=== PATIENT | male | born 1975 | race African-American/Black ===

== ENCOUNTER 2024-06-12 13:56 | Outpatient (AMB) | payer MEDICAID, SELFPAY ==
--- NOTE | 2024-06-12 13:58 | A.OFFVIS_ITS ---
Intake Visit Reasons: ED Intake Note: New patient is present for Erectile Dysfunction Urology Med: Sildenafil Antibiotic Allergy:None Blood Thinner: None Monogram Maker Required: No Accompanied by: Self / Same As Patient Allergies No Known Allergies Allergy (Verified 06/12/24 14:45) Medication List - Last Reconciled 06/12/24 by ARISTEO Galeana cetirizine 10 mg PO DAILY fluticasone propionate 50 mcg/actuation 2 sprays intranasal DAILY insulin glargine (Lantus Solostar U-100 Insulin) 35 units subcut BEDTIME melatonin 5 mg PO BEDTIME semaglutide (weight loss) (Wegovy) 0.25 mg subcut QWEEK HPI Comments Details: Rolando is a very pleasant 49-year-old male patient of Dr. Quintana. He has a past medical history of type 2 diabetes, insomnia, allergic rhinitis, mixed hyperlipidemia, depression, and transaminitis. He presents to the office today as a new patient for erectile dysfunction. In discussion with the patient today he reports symptoms have been present for many years however feels they have recently worsen. He discusses his recent admission to [facility] just 1 month ago at which time he was diagnosed with type 2 diabetes in his sugar was greater than 700. He discusses since his admission he has lost 30 lb and continues to work on diet. He reports having trialed on demand Cialis in the past and felt this was somewhat helpful. He reports having followed up with his PCP and he was given a prescription for p.r.n. Viagra however has not trialed this yet. He does report to be able to obtain an erection however feels maintaining erection adequate for penetration is extremely difficult. He otherwise denies any bothersome urinary issues. He denies urinary urgency, urinary frequency, incontinence, nocturia, hematuria, dysuria, foul smelling urine, changes to urinary stream, flank pain, fever, and or chills. He is happy with his current voiding parameters. In office urinalysis results reviewed with the patient today. We discussed at length lifestyle modifications to assist with ED as well as the importance of managing diabetes for improvement ED as well as overall health and well-being. He otherwise denies any other issues or concerns at this time. [facility] Medical History Diabetes mellitus Amputation finger Acute insomnia Allergic rhinitis Mixed hyperlipidemia Transaminitis Depression Family History (Updated 06/12/24 @ 14:03 by DENG Lema) Mother Colon cancer Father CVD (cardiovascular disease) Review of Systems Const All systems reviewed & are unremarkable except as noted in HPI and below Physical Exam Const General: cooperative, healthy appearing, comfortable, no acute distress, well d eveloped, alert and awake Nutritional Appearance: overweight Orientation/consciousness: patient oriented x3 Limitations: no limitations HEENT Head: Yes normal to inspection, Yes normocephalic and Yes atraumatic Ears: hearing grossly normal bilaterally Eyes General: appearance normal, both eyes and all related structures Neck Neck: Yes normal visual inspection and Yes trachea midline Chest Chest palpation & inspection: normal inspection of the chest Resp Effort & Inspection: normal respiratory effort and able to speak in complete sentences Cardio Rate: regular rate GI Inspection: Yes normal to inspection General: Yes no CVA tenderness Back/Spine/Pelvis Back: no CVA tenderness Skin General skin exam: no rashes or lesions noted Neuro General: patient oriented x3 Extrem General: Yes normal to inspection Psych Appearance: grossly normal and well kempt Mental Status: mental status grossly normal Speech and movement: Normal speech and movement present and Clear speech present Affect: normal affect Attitude: cooperative Thought process: Normal thought process present Thought content: Normal thought content present Insight: Fair insight present (Psych) Judgement: Fair judgement present (Psych) Results AMB Urinalysis, Automated UA Leukoctes 0 Kadie/uL Last Edit by DENG Lema on 06/12/24 14:21 UA Nitrite Negative Last Edit by DENG Lema on 06/12/24 14:21 UA Urobilinogen 1 mg/dL Last Edit by DENG Lmea on 06/12/24 14:21 UA Protein 15 mg/dL Last Edit by DENG Lema on 06/12/24 14:21 UA pH 6.0 Last Edit by DENG Lema on 06/12/24 14:21 UA Blood 0 Star/uL Last Edit by DENG Lema on 06/12/24 14:21 UA Specific [place] 1.020 Last Edit by DENG Lema on 06/12/24 14: 21 UA Ketone Negative Last Edit by DENG Lema on 06/12/24 14:21 UA Bilirubin 0 mg/dL Last Edit by DENG Lema on 06/12/24 14:21 UA Glucose 0 mg/dL Last Edit by JOHN LemaA on 06/12/24 14:21 Results Reviewed Results Reviewed: Laboratory Last Values Urine pH (Auto) 6.0 06/12/24 14:20 Specific [place] (Auto) 1.020 06/12/24 14:20 Urine Protein (Auto) 15 mg/dL 06/12/24 14:20 Glucose (UA)(Auto) 0 mg/dL 06/12/24 14:20 Urine Ketones (Auto) Negative 06/12/24 14:20 Urine Blood (Auto) 0 Star/uL 06/12/24 14:20 Urine Nitrite (Auto) Negative 06/12/24 14:20 Urine Bilirubin (Auto) 0 mg/dL 06/12/24 14:20 Urine Urobilinogen (Auto) 1 mg/dL 06/12/24 14:20 Leukocyte Esterase (Auto) 0 Kadie/uL 06/12/24 14:20 Assessment & Plan Assessment & Plan (1) Erectile dysfunction associated with type 2 diabetes mellitus: Code(s): E11.69 - Type 2 diabetes mellitus with other specified complication; N52.1 - Erectile dysfunction due to diseases classified elsewhere Category: Medical Plan In office urinalysis results reviewed with the patient today; as noted above. Will obtain PSA, A1c,testosterone, PSA, and LH for further assessment evaluation. We discussed at length potential causes of erectile dysfunction as well as further treatment options and risks and benefits of these treatment options. We discussed importance of lifestyle modifications to assist with ED We also discussed importance of managing diabetes for improvement in ED as well as overall health and well-being He currently denies any bothersome urinary issues or concerns. He reports be happy with current voiding parameters. Will continue with surveillance monitoring at this time. Follow-up in 3 months with labs to be completed prior; or sooner with any issues, concerns, and or questions. Orders: Orders AMB Urinalysis Automated Today Z13.9 - Encounter for screening, unspecified Hemoglobin A1c Today E11.9 - Type 2 diabetes mellitus without complications Prostate Specific Antigen Today E11.69 - Type 2 diabetes mellitus with other specified complication, N52.1 - Erectile dysfunction due to diseases classified elsewhere Testosterone, Free/Total Today E11.69 - Type 2 diabetes mellitus with other specified complication, N52.1 - Erectile dysfunction due to diseases classified elsewhere Lutenizing Hormone Today E11.69 - Type 2 diabetes mellitus with other specified complication, N52.1 - Erectile dysfunction due to diseases classified elsewhere Patient Instructions: The patient had an opportunity to ask questions regarding the treatment plan. All questions were answered. Physical exam, labs, and imaging were discussed and reviewed in detail. As well as risks, benefits, and discussion of treatment choices. No major barriers to understanding were identified. The patient expressed understanding and agreement with the above treatment plan. The patient was made aware they should contact our office by phone for worsening of their current condition, the appearance of new symptoms, or with any questions or concerns. Compliance is encouraged with any medications and follow up testing that is ordered. It is a privilege to be allowed the opportunity to participate in? your urological care.? Again, if you have any questions or concerns If you have any questions or concerns please do not hesitate to contact me. The office is [phone]. This note is constructed using voice recognition software. 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 Yours sincerely, ARISTEO Galeana Coding Level of Care Code New Pt Level 3 (09982) Diagnoses Erectile dysfunction associated with type 2 diabetes mellitus E11.69; N52.1
--- OUTSIDE RECORDS SUMMARY | 2024-06-12 16:12 | XMS_ITS | Clinical Summary ---
Author Organization [facility] Address [address] [place] [address] Care Team Providers Care Telephone Interviewer Name Role Phone Becky Quintana MD Primary Care Provider [phone] Source Comments PLEASE NOTE, if this patient is a minor, it may be UNLAWFUL to discuss sensitive information that is contained in these records (such as FAMILY PLANNING, MENTAL HEALTH or SUBSTANCE ABUSE) with the minor patient's parent or other person without the patient's specific authorization.[facility] Allergies No known active allergies Medications melatonin 5 mg tabIndications: Insomnia, unspecified type TAKE 1 TABLET BY MOUTH EVERYDAY AT BEDTIME 90 Tablet 1 4 Active fluticasone (FLONASE) 50 mcg/actuation nasal sprayIndication s:Sinus pressure PLACE 2 SPRAYS IN BOTH NOSTRILS ONCE DAILY 48 mL 1 4 Active cetirizine (ZYRTEC) 10 mg tabletIndicatio ns:Allergic rhinitis, unspecified seasonality, unspecified trigger TAKE 1 TABLET BY MOUTH EVERY DAY 90 Tablet 1 4 Active sildenafiL (VIAGRA) 50 mg tabletIndicatio ns:Other male erectile dysfunction Take 1 Tablet by mouth once daily as needed for erectile dysfunction 5 Tablet 5 4 Active insulin glargine 100 unit/mL (3 mL) penIndications: Type 2 diabetes mellitus with hyperglycemia, without long-term current use of insulin ([facility]) Inject 40 Units into the skin nightly at bedtime 8 mL 3 5 Active empagliflozin-m etformin (SYNJARDY XR) 12.5-1,000 mg TBphIndications :Type 2 diabetes mellitus with hyperglycemia, without long-term current use of insulin ([facility]) Take 1 Tablet by mouth daily. 90 Tablet 1 5 Active glucose 4 gram chewable tabletIndicatio ns:Type 2 diabetes mellitus with hyperglycemia, without long-term current use of insulin ([facility]) Place 4 Tablets into mouth, chew and swallow as needed for low blood sugar 90 Tablet 1 5 Active lancets 28 gaugeIndication s:Type 2 diabetes mellitus with hyperglycemia, without long-term current use of insulin ([facility]) Check blood sugar once daily. 100 Each 3 5 Active alcohol swabsIndication s:Type 2 diabetes mellitus with hyperglycemia, without long-term current use of insulin ([facility]) Check blood sugar once daily. 100 Each 5 Active blood sugar diagnostic (FREESTYLE LITE STRIPS) stripsIndicatio ns:Type 2 diabetes mellitus with hyperglycemia, without long-term current use of insulin ([facility]) Check blood sugar once daily. 100 Each 3 5 Active semaglutide, weight loss, (WEGOVY) 0.25 mg/0.5 mL pnijIndications :BMI 38.0-38.9,adult ,Encounter for weight management Inject 0.25 mg into the skin once a week 2 mL 3 4 025 Discontin ued(Thera py completed /Not needed) Active Problems Problem Noted Date Diagnosed Date Alcohol use disorder, mild 04/12/2024 Overview (04/12/2024): Pt has been drinking 2 fingers of bourbon 2-3 drinks a night in order to go to sleep. Switched from danilo to bourbon. Denies drinking during the day. Denies withdrawal symptoms. Denies cravings for alcohol. Reports melatonin gave him nightmares. Declined Naltrexone. Encounter for weight management 04/12/2024 Overview (04/12/2024): 04/12/24: weight 264lbs Wegovy 0.25mg Other male erectile dysfunction 04/03/2023 Overview (04/03/2023): Seen by Urology 03/24/23, started on Tadalafil 20mg PRN Financial difficulties 11/08/2022 Lack of housing 11/08/2022 Lack of access to transportation 11/08/2022 Mixed hyperlipidemia 11/08/2022 Allergic rhinitis 11/08/2022 Transaminitis 11/08/2022 Family history of colon cancer in mother 023 Depression 08/02/2022 Overview (03/14/2023): [facility] Service Therapist - weekly visits, every Tu No improvement with Lexapro and Wellbutrin combo. Tapered off Insomnia 08/02/2022 Tobacco use 07/04/2022 Encounters Date Type Department Care Team Description 05/29/2024 1:20 PM EST Office Visit [address] [phone] Becky Quintana MD Type 2 diabetes mellitus with hyperglycemia, without long-term current use of insulin ([facility]) (Primary Dx) 05/29/2024 Travel 05/29/2024 Interim Notes [address] [phone] Ilsa Arteaga [place] 04/12/2024 11:00 AM EST Office Visit [address] [phone] Becky Quintana MD Routine general medical examination at a health care facility (Primary Dx); Screening for colon cancer; Mixed hyperlipidemia; Family history of colon cancer in mother; Other male erectile dysfunction; BMI 38.0-38.9,adult; Encounter for weight management; Vertigo; Lump on face; Alcohol use disorder, mild; Insomnia, unspecified type; Financial difficulties; Lack of housing; Lack of access to transportation; Immunization declined; Screening for STDs (sexually transmitted diseases) 04/12/2024 Interim Notes [address] [phone] Silva Edwards [place] 04/12/2024 Travel from Last 3 Months Immunizations Name Administration Dates Next Due TDAP 07/04/2022 Family History Medical History Relation Name Comments Cardiovascular disease Father Colon Cancer Mother Relation Name Status Comments Father Mother Social History Tobacco Use Types Packs/Day Years Used Date Smoking Tobacco: Every Day Cigarettes Smokeless Tobacco: Never Tobacco Cessation:Ready to Q uit: Not Asked; Counseling Given: Not Answered Alcohol Use Standard Drinks/Week Comments Yes 0 (1 standard drink = 0.6 oz pur e alcohol) occational Social Connections Answer Date Recorded Connectedness 99 05/02/2023 Financial Resource Strain Answer Date R ecorded Financial Resource Strain 2 2022 Stress Answer Date Recorded Stress 2 11/08/2022 Physical Activity Answer Date Recorded Physical Activity 0 07/04/2022 Food Insecurity Answer Date Recorded Food 1 11/08/2022 Transportation Needs Answer Date Record ed Transportation 2 11/08/2022 Housing Stability Answer Date Recorded Housing 2 11/08/2022 Safety and Environment Answer Date Barber rded Safety 0 05/02/2023 Utilities Answer Date Recorded Utilities 1 11/08/2022 Employment Answer Date Recorded Stress 0 07/04/2022 Sex and Gender Information Value Date Recorded Sex Assigned at Male 07/04/2022 11:21 AM PST Legal Sex Male 10:22 AM PST Gender Identity Male 07/04/2022 11:21 AM PST Sexual Orientation Straight 07/04/2022 11 :21 AM PST COVID-19 Exposure Response Date Recorded In the last 10 days, have yo u been in contact with someone who was confirmed or suspected to have Coronavirus/COVID-19? No / Unsure 05/29/2024 1:17 PM EST Last Filed Vital Signs Vital Sign Reading Time Taken Comments Blood Pressure 130/84 05/29/2024 1:26 PM EST Pulse 84 05/29/2024 1:26 PM EST Temperature 36.3 ??C (97.3 ??F) 05/29/2024 1:26 PM ES T Respiratory Rate 16 05/29/2024 1:26 PM EST Oxygen Saturation 98% 05/29/2024 1:26 PM EST Inhaled Oxygen Concentration - - Weight 110.1 kg (242 lb 12.8 oz) 05/29/2024 1:26 PM EST Height 175.4 cm (5' 9.06 ) 04/12/2024 1 1:08 AM EST Body Mass Index 35.8 04/12/2024 11:08 AM EST Plan of Treatment Upcoming Encounters Date Type Department Care Team (Late st Contact Info) Description 06/26/2024 10:40 AM EST Office Visit [address] [phone] 07/05/2024 11:20 AM EST Office Visit [address] [phone] Reymundo Thurman, PharmD [address] [place] [address] 07/15/2024 10:40 AM EST Office Visit [address] [phone] Becky Quintana MD [address] [place] [address] Health Maintenance Due Date Last Done Comments Dental Prophy 1976 Diabetes Foot Exam 1976 Diabetes Microalbumin (w/Creatinine) 1976 Retinopathy Screening 01/28/1989 Imm-Hepatitis A (1 of 2 - Ri sk 2-dose series) 01/28/1995 Imm-Hepatitis B (1 of 3 - 19 + 3-dose series) 01/28/1995 Imm-Pneumococcal (1 of 2 - PCV) 01/28/1995 CT Colonography 01/28/2021 Colonoscopy 01/28/2021 Colorectal Cancer Screening 01/28/2021 FIT/gFOBT 01/28/2021 Fecal DNA 01/28/2021 Flexible Sigmoidoscopy 01/28/2021 [id number] ( - season) 2024 Imm-Influenza (#1) 2024 Alcohol and Drug Screen 05/22/2024 04/12/2024, 07/04 Depression Monitoring 07/13/2024 04/12/2024 , 03/14/2023, 11/02/2022, Additional history exists Diabetes HbA1c 08/18/2024 05/20/2024, 04/23, 04/12/2024, Additional history exists Dental BW 01/27/2025 01/26/2024 Dental Examination 01/27/2025 01/26/2024 Dental Perio Charting 01/27/2025 01/26/2024 Annual Preventive Care Visit 04/12/2025 04/12/2024, 07/04/2022 LTBI Screening (#1) 04/12/2025 04/12/2024 Lipid Screening 04/12/2025 04/12/2024, 07/04/2022 Tobacco Cessation Counseling (#1) 04/12/2025 024 Serum Creatinine 05/22/2025 05/22/2024, , 05/20/2024, Additional history exists Hypertension Screening (#1) 05/29/2025 Dental FMX/Pano 01/27/2029 01/26/2024 Imm-DTaP/Tdap/Td (2 - Td or Tdap) 07/04/2032 023 HIV Screening Completed 07/04/2022 Hepatitis C Screening Completed 07/04/2022 Procedures Procedure Name Priority Date/Time Associated Diagnosis Comments OTHER ORDERS SCANNED DOCUMENT 05/29/2024 3:00 AM EST QUANTIFERON-TB GOLD PLUS Routine 04/12/2024 12:35 PM EST Routine general medical examination at a health care facility TSH W/RFLX FREE T4 Routine 04/12/2024 12 :33 PM EST Routine general medical examination at a health care facility CBC (H/H, RBC, INDICES, WBC, PLT) (REFL) Routine 04/12/2024 12:33 PM EST Routine general medical examination at a health care facility LIPID PANEL Routine 04/12/2024 12:33 PM EST Routine general medical examination at a health care facility HEMOGLOBIN GLYCOSYLATED A1C Routine 04/12/2024 12:33 PM EST Routine general medical examination at a health care facility COMPREHENSIVE METABOLIC PANEL Routine 04/12/2024 12:33 PM EST Routine general medical examination at a health care facility Full INTRAORAL - COMP SERIES OF RADIOGRAPHIC IMAGES Routine 01/26/2024 10:00 AM EDT Caries of enamel (incipient) Caries Full COMP ORAL EVALUATION - NEW/ESTABLISHED PATIENT Routine 01/26/2024 10:00 AM EDT Caries of enamel (incipient) Caries HIV 1/2 AG & AB W/RFLX (4TH GEN) Routine 07/04/2022 2:35 PM EST Exposure to potential infection HEPATITIS C AB W/RFLX HCV RNA, QT, RT PCR Routine 07/04/2022 2:35 PM EST Exposure to potential infection from Last 3 Months or Most Recently Relevant to Health Maintenance Results * OTHER ORDERS SCANNED DOCUMENT (05/29/2024 3:00 AM EST) 05/29/2024 3:00 AM EST Corneliusricadragust[facility] Naranjori T[employer] DELIVERY AIDE-C SCAN OTHER ORDERS Final R esult * QUANTIFERON-TB GOLD PLUS (04/12/2024 12:35 PM EST) QUANTIFERON NEGATIVE NEGATIVE [facility] Comment: Negative test result. M. tuberculosis complex infection unlikely. NIL 0.16 IU/mL [facility] MITOGEN-NIL 6.93 IU/mL [facility] TB1-NIL <0.00 IU/mL [facility] TB2-NIL 0.01 IU/mL [facility] Comment: The Nil tube value reflects the background interferon gamma immune response of the patient's blood sample. This value has been subtracted from the patient's displayed TB and Mitogen results. Lower than expected results with the Mitogen tube prevent false-negative Quantiferon readings by detecting a patient with a potential immune suppressive condition and/or suboptimal pre-analytical specimen handling. The TB1 Antigen tube is coated with the M. tuberculosis-specific antigens designed to elicit responses from TB antigen primed CD4+ helper T-lymphocytes. The TB2 Antigen tube is coated with the M. tuberculosis-specific antigens designed to elicit responses from TB antigen primed CD4+ helper and CD8+ cytotoxic T-lymphocytes. For additional information, please refer to https://education.St. Vibes.ReCoTech/faq/KES344 (This link is being provided for informational/ educational purposes only.) Blood Blood / Unknown 04/12/2024 1 2:35 PM EST 04/12/2024 12:35 PM EST Narrative [facility] - 04/16/2024 2:09 PM EST FASTING:YES us Becky Quintana MD LAB - BLOOD DRAW Final Result Performing Organization Address City/[facility]/ZIP Co de Phone Number [facility] [address] [address], [employer] [address] [address] * CBC (H/H, RBC, INDICES, WBC, PLT) (REFL) (04/12/2024 12:33 PM EST) [facility] WHITE BLOOD CELL COUNT 9.3 3.8 - 10.8 Thousand/ uL [facility] RED BLOOD CELL COUNT 5.04 4.20 - 5.80 Million/u L [facility] HEMOGLOBIN 16.5 13.2 - 17.1 g/dL [facility] HEMATOCRIT 47.2 38.5 - 50.0 % [facility] MCV 93.7 80.0 - 100.0 fL [facility] MCH 32.7 27.0 - 33.0 pg [facility] MCHC 35.0 32.0 - 36.0 g/dL [facility] Comment: For adults, a slight decrease in the calculated MCHC value (in the range of 30 to 32 g/dL) is most likely not clinically significant; however, it should be interpreted with caution in correlation with other red cell parameters and the patient's clinical condition. RDW 13.6 11.0 - 15.0 % [facility] PLATELET COUNT 149 140 - 400 Thousand/ uL [facility] MPV 12.1 7.5 - 12.5 fL [facility] Blood Blood / Unknown 04/12/2024 1 2:33 PM EST 04/12/2024 12:34 PM EST Narrative [facility] - 04/13/2024 4:24 AM EST FASTING:YES us Becky Quintana MD LAB - BLOOD DRAW Final Result Performing Organization Address [facility]/ZIP Co de Phone Number [email or web address] [facility] [address] [address], [employer] [facility] [address] [place] [address] * TSH W/RFLX FREE T4 (04/12/2024 12:33 PM EST) TSH W/REFLEX TO FT4 2.56 0.40 - 4.50 mIU/L [facility] Blood Blood / Unknown 04/12/2024 1 2:33 PM EST 04/12/2024 12:34 PM EST Narrative [email or web address] - 04/13/2024 4:24 AM EST FASTING:YES us Becky Quintana MD LAB - BLOOD DRAW Edited Result - Final Performing Organization Address [facility]/ZIP Co de Phone Number [facility] [address] [place] [phone], [employer] [address] [address] * (ABNORMAL) HEMOGLOBIN GLYCOSYLATED A1C (04/12/2024 12:33 PM EST) HEMOGLOBIN A1C 6.9(H) <5.7 % of total Hgb [facility] Comment: For someone without known diabetes, a hemoglobin A1c value of 6.5% or greater indicates that they may have diabetes and this should be confirmed with a follow-up test. For someone with known diabetes, a value <7% indicates that their diabetes is well controlled and a value greater than or equal to 7% indicates suboptimal control. A1c targets should be individualized based on duration of diabetes, age, comorbid conditions, and other considerations. Currently, no consensus exists regarding use of hemoglobin A1c for diagnosis of diabetes for children. ?? Blood Blood / Unknown 04/12/2024 1 2:33 PM EST 04/12/2024 12:34 PM EST Narrative [email or web address] - 04/13/2024 4:24 AM EST FASTING:YES us Becky Quintana MD LAB - BLOOD DRAW Edited Result - Final Performing Organization Address City/[facility]/ZIP Co de Phone Number [facility] [address] [address], [employer] [address] [address] * (ABNORMAL) LIPID PANEL (04/12/2024 12:33 PM EST) CHOLESTEROL, TOTAL 131 <200 mg/dL [facility] HDL CHOLESTEROL 26(L) > OR = 40 mg/dL [facility] TRIGLYCERIDES 170(H) <150 mg/dL [facility] LDL-CHOLESTEROL 78 99 mg/dL (calc) [facility] Comment: Reference range: <100 Desirable range <100 mg/dL for primary prevention; ?? <70 mg/dL for patients with CHD or diabetic patients with > or = 2 CHD risk factors. LDL-C is now calculated using the Mayda calculation, which is a validated novel method providing better accuracy than the Friedewald equation in the estimation of LDL-C. Eddie SS et al. ROSEANNE. 2013;310(19): 6360-9482 (http://education.InSphero/faq/BYX339) CHOL/HDLC RATIO 5.0(H) <5.0 (calc) [facility] NON-HDL CHOLESTEROL 105 <130 mg/dL (calc) [facility] Comment: For patients with diabetes plus 1 major ASCVD risk factor, treating to a non-HDL-C goal of <100 mg/dL (LDL-C of <70 mg/dL) is considered a therapeutic option. Blood Blood / Unknown 04/12/2024 1 2:33 PM EST 04/12/2024 12:34 PM EST Narrative [facility] - 04/13/2024 4:24 AM EST FASTING:YES Becky Quintana MD LAB - BLOOD DRAW Final Result [facility] [address] [place] [address], [facility] [address] [place] [phone] * (ABNORMAL) COMPREHENSIVE METABOLIC PANEL (04/12/2024 12:33 PM EST) GLUCOSE 140(H) 65 - 99 mg/dL [facility] Comment: ?Fasting reference interval For someone without known diabetes, a glucose value >125 mg/dL indicates that they may have diabetes and this should be confirmed with a follow-up test. UREA NITROGEN (BUN) 9 7 - 25 mg/dL [email or web address] CREATININE (blood) 0.81 0.60 - 1.29 mg/dL [email or web address] EGFR 109 > OR = 60 mL/min/1. 73m2 [email or web address] [facility] BUN/CREATININE RATIO SEE NOTE: [email or web address] [facility] Comment: ?? Not Reported: BUN and Creatinine are within ?? reference range. ? SODIUM 139 135 - 146 mmol/L [email or web address] POTASSIUM 3.8 3.5 - 5.3 mmol/L [email or web address] CHLORIDE 106 98 - 110 mmol/L [email or web address] CARBON DIOXIDE 25 20 - 32 mmol/L [email or web address] CALCIUM 9.1 8.6 - 10.3 mg/dL [email or web address] PROTEIN, TOTAL 8.4(H) 6.1 - 8.1 g/dL [email or web address] ALBUMIN 4.5 3.6 - 5.1 g/dL [email or web address] GLOBULIN 3.9(H) 1.9 - 3.7 g/dL (calc) [email or web address] ALBUMIN/GLOBULI N RATIO 1.2 1.0 - 2.5 (calc) [email or web address] BILIRUBIN, TOTAL 0.7 0.2 - 1.2 mg/dL [email or web address] ALKALINE PHOSPHATASE 76 36 - 130 U/L [email or web address] [facility] AST 51(H) 10 - 40 U/L [email or web address] ALT 52(H) 9 - 46 U/L [email or web address] Blood Blood / Unknown 04/12/2024 1 2:33 PM EST 04/12/2024 12:34 PM EST Narrative [email or web address] - 04/13/2024 4:24 AM EST FASTING:YES us Becky Quintana MD LAB - BLOOD DRAW Edited Result - Final [email or web address] [facility] [address] [address], [email or web address] [facility] [address] [place] [address] * HEPATITIS C AB W/RFLX HCV RNA, QT, RT PCR (07/04/2022 2:35 PM EST) HEPATITIS C ANTIBODY NON-REACT SEGUN NON-REACT SEGUN [facility] SIGNAL TO CUT-OFF 0.09 <1.00 [facility] Comment: HCV antibody was non-reactive. There is no laboratory evidence of HCV infection. In most cases, no further action is required. However, if recent HCV exposure is suspected, a test for HCV RNA (test code 23475) is suggested. For additional information please refer to http://Nidmi.ReGen Power Systems/faq/YPK93t9 (This link is being provided for informational/ educational purposes only.) Blood Blood / Unknown 07/04/2022 2 :35 PM EST 07/04/2022 2:35 PM EST Narrative [facility] [employer] - 07/05/2022 7:19 AM EST FASTING:NO Becky Quintana MD LAB - BLOOD DRAW Edited Result - Final [facility] [address] [facility] [address] [place] [address], [facility] [address] ([address]) [place] [address] * HIV 1/2 AG & AB W/RFLX (4TH GEN) (07/04/2022 2:35 PM EST) [facility] HIV AG/AB, 4TH GEN NON-REAC TIVE NON-REAC TIVE [facility] Comment: HIV-1 antigen and HIV-1/HIV-2 antibodies were not detected. There is no laboratory evidence of HIV infection. PLEASE NOTE: This information has been disclosed to you from records whose confidentiality may be protected by state law. ??If your state requires such protection, then the state law prohibits you from making any further disclosure of the information without the specific written consent of the person to whom it pertains, or as otherwise permitted by law. A general authorization for the release of medical or other information is NOT sufficient for this purpose. ?? For additional information please refer to http://Nidmi.ReGen [employer] Systems/faq/PXL229 (This link is being provided for informational/ educational purposes only.) The performance of this assay has not been clinically validated in patients less than 2 years old. Blood Blood / Unknown 07/04/2022 2 :35 PM EST 07/04/2022 2:35 PM EST Narrative [facility] - 07/05/2022 7:19 AM EST FASTING:NO Becky Quintana MD LAB - BLOOD DRAW Final Result [facility] [address] [facility] [address] [place] [address], [facility] [address] [facility] ([address]) [place] [address] from Last 3 Months or Most Recently Relevant to Health Maintenance Insurance [facility] [employer] MEDICAID DENTAL Care Teams Telephone Interviewer Relationship Specialty Start Date End Date Becky Quintana MD [address] [place] [address] PCP - General Family Medicine, Physician 06/10/22
--- OUTSIDE RECORDS SUMMARY | 2024-06-12 16:12 | XMS_ITS | Encounter Summary ---
Author Organization [facility] Address [address] [place] [address] Care Team Providers Care Autopsy Pathologist Name Role Phone Becky Quintana MD Primary Care Provider [phone] Reason for Visit * Reason Comments Correspondence Encounter Details Date Type Department Care Team (Late st Contact Info) Description 05/29/2024 Interim Notes [address] [phone] Ilsa Arteaga [place] [address] [place] [address] Social History Tobacco Use Types Packs/Day Years Used Date Smoking Tobacco: Every Day Cigarettes Smokeless Tobacco: Never Alcohol Use Standard Drinks/Week Comments Yes 0 [...] Orientation Straight 07/04/2022 11 :21 AM PST documented as of this encounter Progress Notes * Ilsa Arteaga MA - 05/29/2024 9:10 AM EST Faxed plan of care to [facility] at [phone]. Fax was a success. Form sent to medical records on 05/29/24 to be scanned into pt EMR. documented in this encounter Plan of Treatment Upcoming Encounters Date Type Department Care Team (Late st Contact Info) Description 06/26/2024 10:40 AM EST Office Visit [address] [phone] 07/05/2024 11:20 AM EST Office Visit [address] [phone] Reymundo Thurman PharmD [address] [place] [address] 07/15/2024 10:40 AM EST Office Visit [address] [phone] Becky Quintana MD [address] [place] [phone] documented as of this encounter Visit Diagnoses Not on filedocumented in this encounter Additional Health Concerns Assessment Noted Time PHQ-9 Depression Total Score: 22 04/12/ 024 1:25 PM PST documented as of this encounter Care Teams Autopsy Pathologist Relationship Specialty Start Date End Date Becky Quintana MD [address] [place] [address] PCP - General Family Medicine, Physician 06/10/22 documented as of this encounter
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
--- OUTSIDE RECORDS SUMMARY | 2024-06-12 16:12 | XMS_ITS | Encounter Summary ---
Author Organization [facility] Address [address] [place] [address] Care Team Providers Care Patient Ombudsperson Name Role Phone Becky Quintana MD Primary Care Provider [phone] Encounter Details Date Type Department Care Team (Latest Contact Info) Description 05/29/2024 Travel Social History Tobacco Use Types Packs/Day Years [...] PM EST documented as of this encounter Plan of Treatment Upcoming Encounters Date Type Department Care Team (Late st Contact Info) Description 06/26/2024 10:40 AM EST Office Visit [address] [phone] 07/05/2024 11:20 AM EST Office Visit [address] [phone] Reymundo Thurman, PharmD [address] [place] [phone] 07/15/2024 10:40 AM EST Office Visit [address] [phone] Becky Quintana MD [address] [place] [phone] documented as of this encounter Visit Diagnoses Not on filedocumented in this encounter Additional Health Concerns Assessment Noted Time PHQ-9 Depression Total Score: 22 024 1:25 PM PST documented as of this encounter Care Teams Patient Ombudsperson Relationship Specialty Start Date End Date Becky Quintana MD [address] [place] [phone] PCP - General Family Medicine, Physician 06/10/22 documented as of this encounter
--- OUTSIDE RECORDS SUMMARY | 2024-06-12 16:13 | XMS_ITS | Encounter Summary ---
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 pertinent surgical history. No family history on file. has No Known Allergies. No current facility-administered medications on file prior to encounter. Current Outpatient Medications on File Prior to Encounter Medication Sig Dispense Refill fluticasone propionate (FLONASE) 50 mcg/actuation nasal spray Administer 1 spray into each nostril 1 (one) time each day. Shake gently. Before first use, prime pump. After use, clean tip and replace cap. melatonin 5 mg tablet Take 1 tablet (5 mg total) by mouth at bedtime. semaglutide (OZEMPIC) 0.25 mg or 0.5 mg(2 mg/1.5 mL) injection pen Inject 0.25 mg under the skin every 7 (seven) days. sildenafiL (VIAGRA) 50 mg tablet Take 1 tablet (50 mg total) by mouth 1 (one) time each day if needed for erectile dysfunction. Physical Exam ED Triage Vitals [05/20/24 1512] Temp Heart Rate Resp BP 36.4 ??C (97.5 ??F) 88 18 124/84 SpO2 Temp Source Heart Rate Source Patient Position 96 % Oral -- Sitting BP Location FiO2 (%) Right arm -- GENERAL: Non-toxic appearing, no acute distress. SKIN: [place], warm, dry. HEENT: Normocephalic, atraumatic. EOMI. NECK: Supple, full ROM. CARDIOVASCULAR: Heart regular rate and rhythm. No discernible MRG. PULMONARY: Breathing adequately on room air. CTAB. ABDOMINAL: Soft, nondistended, nontender throughout. MUSCULOSKELETAL: Nonpainful and purposeful movements of all extremities bilaterally, equal strengthbilaterally NEURO: AOx3. Equal strength and sensation bilaterally. PSYCHIATRIC: Normal affect, fluid speech, good eye contact and appropriate demeanor. Results Labs Reviewed COMPREHENSIVE METABOLIC PANEL - Abnormal Result Value Sodium 129 (*) Potassium 4.4 Chloride 94 (*) CO2 22 Anion Gap 13 (*) Glucose 704 (*) BUN 24 Creatinine 1.93 (*) eGFR 42 (*) BUN/Creatinine Ratio 12.4 Calcium 10.4 AST (SGOT) 22 ALT (SGPT) 46 Alkaline Phosphatase 128 (*) Total Protein 9.2 (*) Albumin 4.3 Total Bilirubin 1.4 MAGNESIUM - Abnormal Magnesium 3.0 (*) OSMOLALITY - Abnormal Osmolality Darron 331 (*) BETA HYDROXYBUTYRATE - Abnormal Beta-Hydroxybutyrate 44.2 (*) VENOUS BLOOD GAS - Abnormal pH, Carlos 7.32 pCO2, Carlos 44 pO2, Carlos 39 HCO3, Venous 20.9 (*) O2 Sat, Carlos 68.4 Base Excess, Carlos -3.6 (*) CBC WITH AUTO DIFFERENTIAL - Abnormal WBC 10.7 RBC 5.20 Hemoglobin 16.8 Hematocrit 45.8 MCV 88.1 MCH 32.3 (*) MCHC 36.7 RDW 12.7 Platelets 150 MPV 12.3 (*) NRBC 0.0 NRBC Absolute 0.00 Neutrophils Relative 49.4 Lymphocytes Relative 41.7 Monocytes Relative 7.9 Eosinophils Relative 0.4 Basophils Relative 0.4 Immature Granulocytes Relative 0.2 Neutrophils Absolute 5.30 Lymphocytes Absolute 4.47 Monocytes Absolute 0.85 Eosinophils Absolute 0.04 Basophils Absolute 0.04 Immature Granulocytes Absolute 0.02 POCT GLUCOSE, BLOOD - Abnormal Glucose POCT >600 (*) LIPASE - Normal Lipase 35 RESPIRATORY VIRUS PANEL MOLECULAR STUDY CBC AND DIFFERENTIAL Narrative: The following orders were created for panel order CBC and differential. Procedure Abnormality Status --------- ------ CBC auto differential[[id number]] Abnormal Final result Please view results for these tests on the individual orders. URINALYSIS WITH REFLEX MICROSCOPIC Narrative: The following orders were created for panel order Urinalysis with reflex microscopic. Procedure Abnormality Status --------- ------ Urinalysis with reflex ...[[id number]] Please view results for these tests on the individual orders. URINALYSIS WITH REFLEX MICROSCOPIC HEMOGLOBIN A1C TROPONIN I HIGH SENSITIVITY TROPONIN I HIGH SENSITIVITY POC GLUCOSE POCT GLUCOSE, BLOOD POCT GLUCOSE, BLOOD POCT GLUCOSE, BLOOD POCT GLUCOSE, BLOOD POCT GLUCOSE, BLOOD Abnormal Labs Reviewed COMPREHENSIVE METABOLIC PANEL - Abnormal; Notable for the following components: Result Value Sodium 129 (*) Chloride 94 (*) Anion Gap 13 (*) Glucose 704 (*) Creatinine 1.93 (*) eGFR 42 (*) Alkaline Phosphatase 128 (*) Total Protein 9.2 (*) All other components within normal limits MAGNESIUM - Abnormal; Notable for the following components: Magnesium 3.0 (*) All other components within normal limits OSMOLALITY - Abnormal; Notable for the following components: Osmolality Darron 331 (*) All other components within normal limits BETA HYDROXYBUTYRATE - Abnormal; Notable for the following components: Beta-Hydroxybutyrate 44.2 (*) All other components within normal limits VENOUS BLOOD GAS - Abnormal; Notable for the following components: HCO3, Venous 20.9 (*) Base Excess, Carlos -3.6 (*) All other components within normal limits CBC WITH AUTO DIFFERENTIAL - Abnormal; Notable for the following components: MCH 32.3 (*) MPV 12.3 (*) All other components within normal limits POCT GLUCOSE, BLOOD - Abnormal; Notable for the following components: Glucose POCT >600 (*) All other components within normal limits XR Chest 2 Views (Results Pending) I have discussed the incidental/abnormal imaging and/or lab abnormalities with the patient and haveinstructed them the need for further evaluation and workup with their primary care doctor. I have provided the patient with a paper copy of the abnormality. The laboratory results, imaging results and other diagnostic exam results were reviewed in the EMR. EKG Interpretation Ventricular rate 81 bpm QT/QTc 3 to 6/448 ms No acute ischemic changes, no STEMI. NSR. Critical Care Time None Differential Diagnosis New onset diabetes Hyperglycemia Ketoacidosis Dehydration Primary polydipsia Atypical ACS ? Medical Decision Making 49-year-old male with history of allergies, family history of diabetes; presents for evaluation of polydipsia, polyuria, intermittent lightheadedness and visual changes, unintentional weight loss. Markedly elevated glucose at urgent care earlier today. Unfortunately due to extended wait times, patient was in the waiting room for at least 5 hours prior to being brought back and formally evaluated. Workup was initiated which showed no leukocytosis oranemia. Creatinine 1.93 with GFR 42, no comparison on record. Glucose by BMP 704. No acidosis on VBG. Butyrate 44.2. Abdominal exam is benign, he has no GI upset to warrant investigation by CT imaging. Willing for urinalysis. EKG and cardiac enzymes to rule out atypical ACS. Respiratory panel. Bolus fluids, 10 units insulin. Admit for new onset diabetes. Clinical Impressions as of 05/20/241956 Hyperglycemia Medications lactated Ringer's bolus 1,000 mL (has no administration in time range) insulin regular (HumuLIN R) injection 10 Units (has no administration in time range) potassium chloride (KLOR-CON M20) CR tablet 40 mEq (has no administration in time range) lactated Ringer's bolus 1,000 mL (has no administration in time range) Procedures Procedures Diagnosis 1. Hyperglycemia Disposition Admit to Inpatient ED Prescriptions None Physician Attestation Electronically signed by ALLY Moreno PA 05/20/241956 ALLY Allen 05/20/241957 Associated attestation - Murtaza Pierson DO - 05/20/2024 8:08 PM EST I discussed the patient management with preceding Advanced Practice Provider. The patient presented to the emergency department with hyperglycemia and symptoms of hyperglycemia,and reportedly does not have a history of diabetes. Patient was noted to be significantly hyperglycemic, and patient's workup and acute care was started in the ED, including appropriate diagnostic studies, IV fluids and symptomatic treatment. The patient's care will be transferred to the inpatient service for further evaluation and management. Patient will continue to be closely observed while inthe ED. Murtaza Pierson DO documented in this encounter H&P Notes * ALLY Fay - 05/20/2024 9:00 PM EST [facility] HISTORY AND PHYSICAL Please contact author [ALLY Fay] via [employer]. Patient: Kim Olson Admission Date/Time: 05/20/2024 7:35 PM : 1975 [49 y.o.] Patient's PCP: Becky Quintana MD Attending Provider: Leo Flores MD CHIEF COMPLAINT DKA HISTORY OF PRESENT ILLNESS This is a pleasant 49-year-old gentleman with a past medical history of insomnia, overweight, hyperlipidemia, transaminitis and depression who presents to [facility] with a complaint of DKA. Patient states that over the past couple of weeks he has had a decreased appetite, polyuria and polydipsia with blurry vision. He was supposed to start on weight loss but that was deferred until he went on a cruise. Patient presents to [facility] and his labs show a sodium of 129, sodiumof 704 and anion gap of 13. EKG is nonischemic and troponins have been flat. He has no history of diabetes. He was given 10 units of fact acting insulin and started on an insulin drip. Currently denies any recent illnesses or chest pain. Review of Systems The rest of the 12 point review of systems is reviewed and is negative MEDICAL HISTORY Past Medical History: Hyperlipidemia Overweight Transaminitis Depression Insomnia . Past Surgical History Social History Drinks about 2 fingers of bourbon per night for sleep. Has not had any alcohol for the past 2 weeks. Smokes cigars less than 1 pack/day No drugs Allergies Patient has no known allergies. Home Medications Home Medications fluticasone propionate (FLONASE) 50 mcg/actuation nasal spray Administer 1 spray into each nostril 1 (one) time each day. Shake gently. Before first use, prime pump. After use, clean tip and replace cap. melatonin 5 mg tablet Take 1 tablet (5 mg total) by mouth at bedtime. semaglutide (OZEMPIC) 0.25 mg or 0.5 mg(2 mg/1.5 mL) injection pen Inject 0.25 mg under the skin every 7 (seven) days. sildenafiL (VIAGRA) 50 mg tablet Take 1 tablet (50 mg total) by mouth 1 (one) time each day if needed for erectile dysfunction. EKG 81 bpm Normal sinus rhythm Physical Examination Alert and oriented. Neurologically grossly intact. HEENT: Head normocephalic atraumatic: eyes anicteric, extraocular muscles intact. Mucosa: pink and moist. Trachea midline. No JVD. Chest: no deformities. Heart: RRR Lungs: Clear to auscultation bilaterally. Abdomen: Positive bowel sounds soft and nontender. Upper extremities: no clubbing or cyanosis. Lower extremities: No edema Skin: Warm and dry ASSESSMENT & PLAN DKA: Insulin drip 4 units/h. Replace potassium as indicated. Check BMP every 4 hours Check glucose every 2 hours. Dietary consult IVF Respiratory panel pending CXR pending Insomnia: Melatonin Admission checklist Code status: Full Code - Default VTE Prophylaxis: Heparin 5000 units subq q 8 hours Associated attestation - Leo Flores MD - 05/21/2024 8:32 PM EST This is a split/shared visit with ALLY Fay. I personally performed the medical decision making (MDM) for the care of this patient on 05/20/2024s documented below Previous healthy 49-year-old male presents with diabetic ketoacidosis. After discussion with ER provider, the patient will be admitted to the hospital. The patient initially was planned to be started on insulin infusion; however, after 4 L fluid resuscitation and 10 units of IV insulin, the patient's anion gap had closed. He has been transitioned to insulin glargine 20 units daily and sliding scale insulin for initial management of his diabetes. Hemoglobin A1c is currently pending. Leo Flores MD 05/21/24 8:31 PM EST documented in this encounter Plan of Treatment Upcoming Encounters Date Type Department Care Team (Late st Contact Info) Description 09/04/2024 1:30 PM EDT Appointment [facility] Endoscopy [address] [place] [id number] Nithin Villavicencio MD [address] [facility] [address] [place] [address] documented as of this encounter Procedures Procedure Name Priority Date/Time Associated Diagnosis Comments POCT GLUCOSE BLOOD Routine 05/23/2024 11 :19 AM EST POCT GLUCOSE BLOOD Routine 05/23/2024 7: 48 AM EST POCT GLUCOSE BLOOD Routine 05/22/2024 7: 38 PM EST POCT GLUCOSE BLOOD Routine 05/22/2024 3: 57 PM EST POCT GLUCOSE BLOOD Routine 05/22/2024 11 :03 AM EST BASIC METABOLIC PANEL Routine 05/22/2024 9:42 AM EST EXTRA TUBES Routine 05/22/2024 9:40 AM EST LAVENDER - EDTA Routine 05/22/2024 9:40 AM EST POCT GLUCOSE BLOOD Routine 05/22/2024 8: 22 AM EST POCT GLUCOSE BLOOD Routine 05/21/2024 10 :56 PM EST POCT GLUCOSE BLOOD Routine 05/21/2024 8: 37 PM EST POCT GLUCOSE BLOOD Routine 05/21/2024 4: 37 PM EST POCT GLUCOSE BLOOD Routine 05/21/2024 1: 22 PM EST POCT GLUCOSE BLOOD Routine 05/21/2024 11 :33 AM EST CBC WITH AUTO DIFFERENTIAL Routine 05/21/2024 9:23 AM EST CBC AND DIFFERENTIAL Routine 05/21/2024 9:23 AM EST PHOSPHORUS Routine 05/21/2024 9:23 AM EST MAGNESIUM Routine 05/21/2024 9:23 AM EST BASIC METABOLIC PANEL Timed 05/21/2024 9:23 AM EST POCT GLUCOSE BLOOD Routine 05/21/2024 7: 39 AM EST POCT GLUCOSE BLOOD Routine 05/21/2024 5: 19 AM EST BASIC METABOLIC PANEL Timed 05/21/2024 4:43 AM EST POCT GLUCOSE BLOOD Routine 05/21/2024 2: 26 AM EST POCT GLUCOSE BLOOD Routine 05/21/2024 12 :16 AM EST BASIC METABOLIC PANEL Timed 05/20/2024 11:46 PM EST POCT GLUCOSE BLOOD Routine 05/20/2024 10 :51 PM EST POCT GLUCOSE BLOOD Routine 05/20/2024 9: 28 PM EST TROPONIN I HIGH SENSITIVITY STAT 05/20/2024 9:25 PM EST XR CHEST 1 VIEW STAT 05/20/2024 9:23 PM EST RESPIRATORY VIRUS PANEL MOLECULAR STUDY STAT 05/20/2024 8:50 PM EST US BEDSIDE VASCULAR ACCESS STAT 05/20/2024 8:47 PM EST TROPONIN I HIGH SENSITIVITY STAT 05/20/2024 8:29 PM EST RIVERA URINE CULTURE TUBE Routine 05/20/20 8:15 PM EST EXTRA TUBES Routine 05/20/2024 8:15 PM EST URINALYSIS WITH REFLEX MICROSCOPIC STAT 05/20/2024 8:14 PM EST URINALYSIS WITH REFLEX MICROSCOPIC STAT 05/20/2024 8:14 PM EST ECG 12-LEAD STAT 05/20/2024 7:49 PM EST BETA HYDROXYBUTYRATE STAT 05/20/2024 5:44 PM EST CBC WITH AUTO DIFFERENTIAL STAT 05/20/2024 5:44 PM EST CBC AND DIFFERENTIAL STAT 05/20/2024 5:44 PM EST OSMOLALITY STAT 05/20/2024 5:44 PM EST MAGNESIUM STAT 05/20/2024 5:44 PM EST LIPASE STAT 05/20/2024 5:44 PM EST HEMOGLOBIN A1C Add-On 05/20/2024 5:44 PM EST VENOUS BLOOD GAS STAT 05/20/2024 5:44 PM EST COMPREHENSIVE METABOLIC PANEL STAT 05/20/2024 5:44 PM EST POCT GLUCOSE BLOOD Routine 05/20/2024 3: 16 PM EST ECG ANNOTATED 05/20/2024 documented in this encounter Results * (ABNORMAL) POCT Glucose, blood (05/23/2024 11:19 AM EST) Glucose POCT 322(H) 70 - 100 mg/dL 05/23/2024 11:20 AM EST [facility] Blood Capillary blood specimen / Unknown 05/23/2024 11:19 AM EST 05/23/2024 11:21 AM EST Eleazar Hernandez MD LAB POINT OF CARE TE ST DOCKED DEVICE UNSOLICITED RESULTS Performing Organization Address City/[facility] Co de Phone Number [facility] [address] [place] [address], * (ABNORMAL) POCT Glucose, blood (05/23/2024 7:48 AM EST) Glucose POCT 239(H) 70 - 100 mg/dL 05/23/2024 7:48 AM EST [facility] Blood Capillary blood specimen / Unknown 05/23/2024 7:48 AM EST 05/23/2024 7:49 AM EST Eleazar Hernandez MD LAB POINT OF CARE TE ST DOCKED DEVICE UNSOLICITED RESULTS Performing Organization Address City/[facility]/ZIP Co de Phone Number [facility] [address] [place] [address], [place] [phone] * (ABNORMAL) POCT Glucose, blood (05/22/2024 7:38 PM EST) Glucose POCT 255(H) 70 - 100 mg/dL 05/22/2024 7:38 PM EST [facility] POCT Comment RN Notified 05/22/2024 7:38 PM EST [facility] Blood Capillary blood specimen / Unknown 05/22/2024 7:38 PM EST 05/22/2024 7:39 PM EST Eleazar Hernandez MD LAB POINT OF CARE TE ST DOCKED DEVICE UNSOLICITED RESULTS Performing Organization Address [facility]/ZIP Co de Phone Number [facility] [address] [place] [address], [place] [phone] * (ABNORMAL) POCT Glucose, blood (05/22/2024 3:57 PM EST) Glucose POCT 281(H) 70 - 100 mg/dL 05/22/2024 3:58 PM EST [facility] Blood Capillary blood specimen / Unknown 05/22/2024 3:57 PM EST 05/22/2024 4:00 PM EST Eleazar Hernandez MD LAB POINT OF CARE TE ST DOCKED DEVICE UNSOLICITED RESULTS Performing Organization Address [facility]/ZIP Co de Phone Number [facility] [address] [place] [address], [place] [phone] * (ABNORMAL) POCT Glucose, blood (05/22/2024 11:03 AM EST) Glucose POCT 321(H) 70 - 100 mg/dL 05/22/2024 11:04 AM EST [facility] Blood Capillary blood specimen / Unknown 05/22/2024 11:03 AM EST 05/22/2024 11:05 AM EST Eleazar Hernandez MD LAB POINT OF CARE TE ST DOCKED DEVICE UNSOLICITED RESULTS [facility] [address] [place] [address], * (ABNORMAL) Basic metabolic panel (05/22/2024 9:42 AM EST) Sodium 133 133 - 145 mmol/L LAB CHEMISTRY METHOD 05/22/2024 10:16 AM [facility] Potassium 3.5 3.5 - 5.5 mmol/L LAB CHEMISTRY METHOD 05/22/2024 10:16 AM [facility] Chloride 100 96 - 110 mmol/L LAB CHEMISTRY METHOD 05/22/2024 10:16 AM [facility] CO2 27 21 - 32 mmol/L LAB CHEMISTRY METHOD 05/22/2024 10:16 AM [facility] Anion Gap 6 3 - 11 LAB CHEMISTRY METHOD 05/22/2024 10:16 AM [facility] Glucose 326(H) 70 - 100 mg/dL LAB CHEMISTRY METHOD 05/22/2024 10:16 AM [facility] BUN 7 5 - 25 mg/dL LAB CHEMISTRY METHOD 05/22/2024 10:16 AM [facility] Creatinine 0.89 0.70 - 1.30 mg/dL LAB CHEMISTRY METHOD 05/22/2024 10:16 AM [facility] eGFR 106 >=60 mL/min/1. 73m2 LAB CHEMISTRY METHOD 05/22/2024 10:16 AM [facility] Comment:Calculation based on the??Chronic Kidney Disease Epidemiology Collaboration (CKD-EPI) equation refit??without adjustment for race. BUN/Creatinine Ratio 7.9 LAB CHEMISTRY METHOD 05/22/2024 10:16 AM EST [facility] Calcium 8.8 8.5 - 10.5 mg/dL LAB CHEMISTRY METHOD 05/22/2024 10:16 AM EST [facility] Blood Venous blood specimen / Unknown Venipuncture / Unknown 05/22/2024 9:42 AM EST 05/22/2024 9:49 AM EST Eleazar Hernandez MD LAB BLOOD ORDERABLES [facility] [address] [place] [address], [place] [phone] * Lavender tube (05/22/2024 9:40 AM EST) Extra Tube Hold for add-ons. 05/22/2024 11:01 AM EST [facility] Comment:Auto resulted. Blood Venous blood specimen / Unknown Venipuncture / Unknown 05/22/2024 9:40 AM EST 05/22/2024 9:50 AM EST Eleazar Hernandez MD LAB BLOOD ORDERABLES Performing Organization Address [facility]/ZIP Co de Phone Number [facility] [address] [place] [address], [place] [phone] * (ABNORMAL) POCT Glucose, blood (05/22/2024 8:22 AM EST) Glucose POCT 344(H) 70 - 100 mg/dL 05/22/2024 8:22 AM EST [facility] Blood Capillary blood specimen / Unknown 05/22/2024 8:22 AM EST 05/22/2024 8:23 AM EST Eleazar Hernandez MD LAB POINT OF CARE TE ST DOCKED DEVICE UNSOLICITED RESULTS Performing Organization Address City/[facility]/ZIP Co de Phone Number [facility] [address] [place] [address], [place] [phone] * (ABNORMAL) POCT Glucose, blood (05/21/2024 10:56 PM EST) Glucose POCT 332(H) 70 - 100 mg/dL 05/21/2024 10:57 PM EST [facility] POCT Comment RN Notified 05/21/2024 10:57 PM EST [facility] Blood Capillary blood specimen / Unknown 05/21/2024 10:56 PM EST 05/21/2024 10:58 PM EST Eleazar Hernandez MD LAB POINT OF CARE TE ST DOCKED DEVICE UNSOLICITED RESULTS [facility] [address] [place] [address], [place] [phone] * (ABNORMAL) POCT Glucose, blood (05/21/2024 8:37 PM EST) Glucose POCT 338(H) 70 - 100 mg/dL 05/21/2024 8:38 PM EST [facility] Blood Capillary blood specimen / Unknown 05/21/2024 8:37 PM EST 05/21/2024 8:39 PM EST Eleazar Hernandez MD LAB POINT OF CARE TE ST DOCKED DEVICE UNSOLICITED RESULTS [facility] [address] [place] [address], [place] [phone] * (ABNORMAL) POCT Glucose, blood (05/21/2024 4:37 PM EST) Glucose POCT 285(H) 70 - 100 mg/dL 05/21/2024 4:39 PM EST [facility] Blood Capillary blood specimen / Unknown 05/21/2024 4:37 PM EST 05/21/2024 4:39 PM EST Eleazar Hernandez MD LAB POINT OF CARE TE ST DOCKED DEVICE UNSOLICITED RESULTS Performing Organization Address [facility]/ZIP Co de Phone Number [facility] [address] [place] [address], [place] [phone] * (ABNORMAL) POCT Glucose, blood (05/21/2024 1:22 PM EST) Glucose POCT 286(H) 70 - 100 mg/dL 05/21/2024 1:24 PM EST [facility] Blood Capillary blood specimen / Unknown 05/21/2024 1:22 PM EST 05/21/2024 1:25 PM EST Eleazar Hernandez MD LAB POINT OF CARE TE ST DOCKED DEVICE UNSOLICITED RESULTS Performing Organization Address [facility] Co de Phone Number [facility] [address] [place] [address], [place] [phone] * (ABNORMAL) POCT Glucose, blood (05/21/2024 11:33 AM EST) Glucose POCT 302(H) 70 - 100 mg/dL 05/21/2024 11:34 AM EST [facility] Blood Capillary blood specimen / Unknown 05/21/2024 11:33 AM EST 05/21/2024 11:35 AM EST Eleazar Hernandez MD LAB POINT OF CARE TE ST DOCKED DEVICE UNSOLICITED RESULTS Performing Organization Address City/[facility]/ZIP Co de Phone Number [facility] [address] [place] [address], [place] [phone] * (ABNORMAL) CBC auto differential (05/21/2024 9:23 AM EST) WBC 9.5 4.8 - 10.8 K/mcL LAB HEMETOLOGY METHOD 05/21/2024 9:51 AM [facility] RBC 4.70 4.50 - 5.50 M/mcL LAB HEMETOLOGY METHOD 05/21/2024 9:51 AM [facility] Hemoglobin 15.1 13.5 - 17.5 g/dL LAB HEMETOLOGY METHOD 05/21/2024 9:51 AM [facility] Hematocrit 41.3(L) 42.0 - 54.0 % LAB HEMETOLOGY METHOD 05/21/2024 9:51 AM [facility] MCV 88.1 79.0 - 98.0 FL LAB HEMETOLOGY METHOD 05/21/2024 9:51 AM [facility] MCH 32.2(H) 27.0 - 32.0 pcg LAB HEMETOLOGY METHOD 05/21/2024 9:51 AM [facility] MCHC 36.6 32.0 - 37.0 g/dL LAB HEMETOLOGY METHOD 05/21/2024 9:51 AM [facility] RDW 12.7 11.0 - 15.0 % LAB HEMETOLOGY METHOD 05/21/2024 9:51 AM [facility] Platelets 136 130 - 400 K/mcL LAB HEMETOLOGY METHOD 05/21/2024 9:51 AM [facility] MPV 12.4(H) 7.0 - 11.0 FL LAB HEMETOLOGY METHOD 05/21/2024 9:51 AM [facility] NRBC 0.0 <1.0 % LAB HEMETOLOGY METHOD 05/21/2024 9:51 AM [facility] NRBC Absolute 0.00 <0.10 K/mcL LAB HEMETOLOGY METHOD 05/21/2024 9:51 AM [facility] Neutrophils Relative 51.1 % LAB HEMETOLOGY METHOD 05/21/2024 9:51 AM [facility] Lymphocytes Relative 42.3 % LAB HEMETOLOGY METHOD 05/21/2024 9:51 AM [facility] Monocytes Relative 5.1 % LAB HEMETOLOGY METHOD 05/21/2024 9:51 AM [facility] Eosinophils Relative 0.7 % LAB HEMETOLOGY METHOD 05/21/2024 9:51 AM [facility] Basophils Relative 0.6 % LAB HEMETOLOGY METHOD 05/21/2024 9:51 AM [facility] Immature Granulocytes Relative 0.2 % LAB HEMETOLOGY METHOD 05/21/2024 9:51 AM [facility] Neutrophils Absolute 4.86 1.50 - 7.00 K/mcL LAB HEMETOLOGY METHOD 05/21/2024 9:51 AM [facility] Lymphocytes Absolute 4.03 1.00 - 5.00 K/mcL LAB HEMETOLOGY METHOD 05/21/2024 9:51 AM [facility] Monocytes Absolute 0.49 0.20 - 1.00 K/mcL LAB HEMETOLOGY METHOD 05/21/2024 9:51 AM [facility] Eosinophils Absolute 0.07 0.00 - 0.50 K/mcL LAB HEMETOLOGY METHOD 05/21/2024 9:51 AM [facility] Basophils Absolute 0.06 0.00 - 0.20 K/mcL LAB HEMETOLOGY METHOD 05/21/2024 9:51 AM [facility] Immature Granulocytes Absolute 0.02 0.00 - 0.03 K/mcL LAB HEMETOLOGY METHOD 05/21/2024 9:51 AM [facility] Blood Venous blood specimen / Unknown Venipuncture / Unknown 05/21/2024 9:23 AM EST 05/21/2024 9:34 AM EST Leo Flores MD LAB BLOOD ORDERABLE S [facility] [address] [place] [address], [place] [phone] * (ABNORMAL) Basic metabolic panel (05/21/2024 9:23 AM EST) Sodium 137 133 - 145 mmol/L LAB CHEMISTRY METHOD 05/21/2024 10:10 AM [facility] Potassium 4.1 3.5 - 5.5 mmol/L LAB CHEMISTRY METHOD 05/21/2024 10:10 AM [facility] Chloride 102 96 - 110 mmol/L LAB CHEMISTRY METHOD 05/21/2024 10:10 AM [facility] CO2 28 21 - 32 mmol/L LAB CHEMISTRY METHOD 05/21/2024 10:10 AM [facility] Anion Gap 7 3 - 11 LAB CHEMISTRY METHOD 05/21/2024 10:10 AM [facility] Glucose 329(H) 70 - 100 mg/dL LAB CHEMISTRY METHOD 05/21/2024 10:10 AM [facility] BUN 15 5 - 25 mg/dL LAB CHEMISTRY METHOD 05/21/2024 10:10 AM [facility] Creatinine 1.17 0.70 - 1.30 mg/dL LAB CHEMISTRY METHOD 05/21/2024 10:10 AM [facility] eGFR 77 >=60 mL/min/1. 73m2 LAB CHEMISTRY METHOD 05/21/2024 10:10 AM [facility] Comment:Calculation based on the??Chronic Kidney Disease Epidemiology Collaboration (CKD-EPI) equation refit??without adjustment for race. BUN/Creatinine Ratio 12.8 LAB CHEMISTRY METHOD 05/21/2024 10:10 AM [facility] Calcium 9.3 8.5 - 10.5 mg/dL LAB CHEMISTRY METHOD 05/21/2024 10:10 AM [facility] Blood Venous blood specimen / Unknown Venipuncture / Unknown 05/21/2024 9:23 AM EST 05/21/2024 9:33 AM EST Leo Flores MD LAB BLOOD ORDERABLE S Performing Organization Address City/[facility]/ZIP Co de Phone Number [facility] [address] [place] [address], [place] [phone] * Phosphorus (05/21/2024 9:23 AM EST) Phosphorus 3.0 2.5 - 4.5 mg/dL LAB CHEMISTRY METHOD 05/21/2024 10:08 AM EST [facility] Blood Venous blood specimen / Unknown Venipuncture / Unknown 05/21/2024 9:23 AM EST 05/21/2024 9:33 AM EST Loe Flores MD LAB BLOOD ORDERABLE S Performing Organization Address [facility]/ZIP Co de Phone Number [facility] [address] [place] [address], [place] [phone] * Magnesium (05/21/2024 9:23 AM EST) [facility] Magnesium 1.9 1.9 - 2.6 mg/dL LAB CHEMISTRY METHOD 05/21/2024 10:08 AM EST [facility] Blood Venous blood specimen / Unknown Venipuncture / Unknown 05/21/2024 9:23 AM EST 05/21/2024 9:33 AM EST Leo Flores MD LAB BLOOD ORDERABLE S Performing Organization Address City/[facility]/ZIP Co de Phone Number [facility] [address] [place] [address], [place] [phone] * (ABNORMAL) POCT Glucose, blood (05/21/2024 7:39 AM EST) Glucose POCT 293(H) 70 - 100 mg/dL 05/21/2024 7:40 AM EST [facility] Blood Capillary blood specimen / Unknown 05/21/2024 7:39 AM EST 05/21/2024 7:42 AM EST Eleazar Hernandez MD LAB POINT OF CARE TE ST DOCKED DEVICE UNSOLICITED RESULTS [facility] [address] [place] [address], [place] [phone] * (ABNORMAL) POCT Glucose, blood (05/21/2024 5:19 AM EST) Pathologist [facility] Glucose POCT 283(H) 70 - 100 mg/dL 05/21/2024 5:20 AM [facility] Blood Capillary blood specimen / Unknown 05/21/2024 5:19 AM EST 05/21/2024 5:21 AM EST Leo Flores MD LAB POINT OF CARE T EST DOCKED DEVICE UNSOLICITED RESULTS Performing Organization Address City/[facility]/ZIP Co de Phone Number [facility] [address] [place] [address], [place] [phone] * (ABNORMAL) Basic metabolic panel (05/21/2024 4:43 AM EST) [facility] Sodium 138 133 - 145 mmol/L LAB CHEMISTRY METHOD 05/21/2024 5:38 AM [facility] Potassium 3.9 3.5 - 5.5 mmol/L LAB CHEMISTRY METHOD 05/21/2024 5:38 AM [facility] Chloride 103 96 - 110 mmol/L LAB CHEMISTRY METHOD 05/21/2024 5:38 AM [facility] CO2 26 21 - 32 mmol/L LAB CHEMISTRY METHOD 05/21/2024 5:38 AM [facility] Anion Gap 9 3 - 11 LAB CHEMISTRY METHOD 05/21/2024 5:38 AM [facility] Glucose 274(H) 70 - 100 mg/dL LAB CHEMISTRY METHOD 05/21/2024 5:38 AM EST [facility] BUN 16 5 - 25 mg/dL LAB CHEMISTRY METHOD 05/21/2024 5:38 AM [facility] Creatinine 1.08 0.70 - 1.30 mg/dL LAB CHEMISTRY METHOD 05/21/2024 5:38 AM EST [facility] eGFR 85 >=60 mL/min/1. 73m2 LAB CHEMISTRY METHOD 05/21/2024 5:38 AM EST [facility] Comment:Calculation based on the??Chronic Kidney Disease Epidemiology Collaboration (CKD-EPI) equation refit??without adjustment for race. BUN/Creatinine Ratio 14.8 LAB CHEMISTRY METHOD 05/21/2024 5:38 AM EST [facility] Calcium 9.2 8.5 - 10.5 mg/dL LAB CHEMISTRY METHOD 05/21/2024 5:38 AM EST [facility] Blood Venous blood specimen / Unknown Venipuncture / Unknown 05/21/2024 4:43 AM EST 05/21/2024 5:08 AM EST Leo Flores MD LAB BLOOD ORDERABLE S Performing Organization Address City/[facility]/ZIP Co de Phone Number [facility] [address] [place] [address], * (ABNORMAL) POCT Glucose, blood (05/21/2024 2:26 AM EST) Glucose POCT 301(H) 70 - 100 mg/dL 05/21/2024 2:30 AM EST [facility] Blood Capillary blood specimen / Unknown 05/21/2024 2:26 AM EST 05/21/2024 2:31 AM EST Leo Flores MD LAB POINT OF CARE T EST DOCKED DEVICE UNSOLICITED RESULTS [facility] [address] [place] [address], [place] [phone] * (ABNORMAL) POCT Glucose, blood (05/21/2024 12:16 AM EST) [facility] Glucose POCT 334(H) 70 - 100 mg/dL 05/21/2024 12:17 AM EST [facility] Blood Capillary blood specimen / Unknown 05/21/2024 12:16 AM EST 05/21/2024 12:18 AM EST Leo Flores MD LAB POINT OF CARE T EST DOCKED DEVICE UNSOLICITED RESULTS Performing Organization Address [facility]/ZIP Co de Phone Number [facility] [address] [place] [address], [place] [phone] * (ABNORMAL) Basic metabolic panel (05/20/2024 11:46 PM EST) [facility] Sodium 134 133 - 145 mmol/L LAB CHEMISTRY METHOD 05/21/2024 12:37 AM [facility] Potassium 3.9 3.5 - 5.5 mmol/L LAB CHEMISTRY METHOD 05/21/2024 12:37 AM [facility] Chloride 101 96 - 110 mmol/L LAB CHEMISTRY METHOD 05/21/2024 12:37 AM [facility] CO2 25 21 - 32 mmol/L LAB CHEMISTRY METHOD 05/21/2024 12:37 AM [facility] Anion Gap 8 3 - 11 LAB CHEMISTRY METHOD 05/21/2024 12:37 AM [facility] Glucose 398(H) 70 - 100 mg/dL LAB CHEMISTRY METHOD 05/21/2024 12:37 AM [facility] BUN 22 5 - 25 mg/dL LAB CHEMISTRY METHOD 05/21/2024 12:37 AM [facility] Creatinine 1.44(H) 0.70 - 1.30 mg/dL LAB CHEMISTRY METHOD 05/21/2024 12:37 AM [facility] eGFR 60 >=60 mL/min/1. 73m2 LAB CHEMISTRY METHOD 05/21/2024 12:37 AM [facility] Comment:Calculation based on the??Chronic Kidney Disease Epidemiology Collaboration (CKD-EPI) equation refit??without adjustment for race. BUN/Creatinine Ratio 15.3 LAB CHEMISTRY METHOD 05/21/2024 12:37 AM [facility] Calcium 9.6 8.5 - 10.5 mg/dL LAB CHEMISTRY METHOD 05/21/2024 12:37 AM [facility] Blood Venous blood specimen / Unknown Venipuncture / Unknown 05/20/2024 11:46 PM EST 05/20/2024 11:55 PM EST Nitesh CANALES LAB BLOOD ORDERABLES Performing Organization Address City/[facility]/ZIP Co de Phone Number [facility] [address] [place] [address], [place] [phone] * (ABNORMAL) POCT Glucose, blood (05/20/2024 10:51 PM EST) Glucose POCT 493(HH) 70 - 100 mg/dL 05/20/2024 10:52 PM EST [facility] Blood Capillary blood specimen / Unknown 05/20/2024 10:51 PM EST 05/20/2024 10:53 PM EST Leo Flores MD LAB POINT OF CARE T EST DOCKED DEVICE UNSOLICITED RESULTS Performing Organization Address [facility]/ZIP Co de Phone Number [facility] [address] [place] [address], [place] [phone] * (ABNORMAL) POCT Glucose, blood (05/20/2024 9:28 PM EST) Glucose POCT 554(HH) 70 - 100 mg/dL 05/20/2024 9:29 PM EST [facility] Blood Capillary blood specimen / Unknown 05/20/2024 9:28 PM EST 05/20/2024 9:30 PM EST Leo Flores MD LAB POINT OF CARE T EST DOCKED DEVICE UNSOLICITED RESULTS Performing Organization Address [facility] de Phone Number [facility] [address] [place] [address], * Troponin I high sensitivity (05/20/2024 9:25 PM EST) High Sensitivity Troponin I 14 <=79 ng/L LAB CHEMISTRY METHOD 05/20/2024 10:05 PM EST [facility] Blood Venous blood specimen / Unknown Venipuncture / Unknown 05/20/2024 9:25 PM EST 05/20/2024 9:40 PM EST Narrative [facility] - 05/20/2024 10:05 PM EST High levels of biotin in samples may falsely decrease hsTroponin values. ??Use caution when interpreting hsTroponin results in patients taking biotin who exhibit renal impairment (eGFR <60) or in patients taking more than 20 mg/day of biotin. Leo Flores MD LAB BLOOD ORDERABLE S Performing Organization Address [facility] Co de Phone Number [facility] [address] [place] [address], * XR Chest 1 View (05/20/2024 9:23 PM EST) Anatomical Region Laterality Modality Body Radiographic Raine ging 05/21/2024 8:47 AM EST Impressions 05/21/2024 8:48 AM EST Impression: No active pulmonary process identified. Telejeanine CANALES ([id number]) -------- FINAL REPORT -------- Dictated By: Gabriela Blankenship Dictated Date: 05/21/2024 08:47 ET Assigned Physician: Gabriela Blankenship Reviewed and Electronically Signed By: Gabriela Blankenship Signed Date: 05/21/2024 08:48 ET Workstation ID: [id number] Transcribed By: Self Edit Transcribed Date: 05/21/2024 08:47 ET Narrative 05/21/2024 8:48 AM EST History: Respiratory illness. Diabetic ketoacidosis. Comparison: No comparison imaging at this institution. Findings: Portable AP upright chest at 9:20 PM. The cardiac silhouette is normal in size allowing for technique. Hilar contours and pulmonary vascularity are within normal limits. The lungs are grossly clear. The costophrenic angles are sharp. 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 Procedure Note Gabriela Blankenship MD - 05/21/2024 History: Respiratory illness. Diabetic ketoacidosis. Comparison: No comparison imaging at this institution. Findings: Portable AP upright chest at 9:20 PM. The cardiac silhouette is normal insize allowing for technique. Hilar contours and pulmonary vascularity arewithin normal limits. The lungs are grossly clear. The costophrenic anglesare sharp. Ossification of the coracoclavicular ligament is noted in the rightshoulder, possibly the sequelae of prior trauma. IMPRESSION: Impression: No active pulmonary process identified. Telejeanine CANALES ([id number]) -------- FINAL REPORT -------- Dictated By: Gabriela Blankenship Dictated Date: 05/21/2024 08:47 ET Assigned Physician: Gabriela Blankenship Reviewed and Electronically Signed By: Gabriela Blankenship Signed Date: 05/21/2024 08:48 ET Workstation ID: [id number] Transcribed By: Self Edit Transcribed Date: 05/21/2024 08:47 ET Nitesh CANALES IMG XR PROCEDURES * Respiratory virus panel molecular study (05/20/2024 8:50 PM EST) Adenovirus Detection by PCR Not Detected Not Detected LAB MICROBIOLOGY METHOD 05/20/2024 9:53 PM [facility] Influenza A PCR Not Detected Not Detected LAB MICROBIOLOGY METHOD 05/20/2024 9:53 PM [facility] Influenza B PCR Not Detected Not Detected LAB MICROBIOLOGY METHOD 05/20/2024 9:53 PM [facility] Coronavirus 229E Not Detected Not Detected LAB MICROBIOLOGY METHOD 05/20/2024 9:53 PM [facility] Coronavirus HKU1 Not Detected Not Detected LAB MICROBIOLOGY METHOD 05/20/2024 9:53 PM [facility] Coronavirus OC43 Not Detected Not Detected LAB MICROBIOLOGY METHOD 05/20/2024 9:53 PM [facility] Coronavirus NL63 Not Detected Not Detected LAB MICROBIOLOGY METHOD 05/20/2024 9:53 PM [facility] Parainfluenza Virus 1 Not Detected Not Detected LAB MICROBIOLOGY METHOD 05/20/2024 9:53 PM [facility] Parainfluenza Virus 2 Not Detected Not Detected LAB MICROBIOLOGY METHOD 05/20/2024 9:53 PM [facility] Parainfluenza Virus 3 Not Detected Not Detected LAB MICROBIOLOGY METHOD 05/20/2024 9:53 PM [facility] Parainfluenza Virus 4 Not Detected Not Detected LAB MICROBIOLOGY METHOD 05/20/2024 9:53 PM [facility] RSV PCR Not Detected Not Detected LAB MICROBIOLOGY METHOD 05/20/2024 9:53 PM [facility] Human Metapneumovirus A and B Not Detected Not Detected LAB MICROBIOLOGY METHOD 05/20/2024 9:53 PM [facility] Rhinovirus/Entero virus Not Detected Not Detected LAB MICROBIOLOGY METHOD 05/20/2024 9:53 PM [facility] Bordetella pertussis Not Detected Not Detected LAB MICROBIOLOGY METHOD 05/20/2024 9:53 PM [facility] Bordetella parapertussis Not Detected Not Detected LAB MICROBIOLOGY METHOD 05/20/2024 9:53 PM EST [facility] Mycoplasma pneumo by PCR Not Detected Not Detected LAB MICROBIOLOGY METHOD 05/20/2024 9:53 PM EST [facility] Chlamydia pneumoniae Not Detected Not Detected LAB MICROBIOLOGY METHOD 05/20/2024 9:53 PM EST [facility] SARS COV-2 Not Detected Not Detected LAB MICROBIOLOGY METHOD 05/20/2024 9:53 PM EST [facility] Swab Both anterior nares / Unknown Non-blood Collection / Unknown 05/20/2024 8:50 PM EST 05/20/2024 9:00 PM EST [facility] - 05/20/2024 9:53 PM EST Testing was performed using the [employer] Respiratory Pathogen PCR Assay. All results must be correlated with the clinical findings. Results should not be used as the sole basis for diagnosis. False Negative results may occur from the presence of sequence variants in the region targeted by the assay or the presence of inhibitors. Results may be affected by concurrent antiviral/antimicrobial therapy or levels of organisms that are below the limit of detection. Leo Flores MD LAB MICROBIOLOGY - GENERAL ORDERABLES [facility] [address] [place] [address], * US BEDSIDE VASCULAR ACCESS (05/20/2024 8:47 PM EST) Anatomical Region Laterality Modality Ultrasound Narrative 05/20/2024 8:56 PM EST ALLY Allen ? 05/20/2024 ??8:56 PM US BEDSIDE VASCULAR ACCESS Date/Time: 05/20/2024 8:56 PM Performed by: ALLY Allen Authorized by: ALLY Allen ?? Comments: ?? Emergency Ultrasound Guidance for Peripheral IV All images have been recorded and permanently stored. Encounter: 8:50 PM Pre-Procedure Check Performed on Patient, Procedure, Side, Site: Yes Indication: RN unable to obtain, IV fluids medications Catheter length: 2.5 inch Catheter gauge: 20-gauge Location: Left upper arm Specific Vein if applicable: Brachial Results / Confirmation: Adequate blood return / Flushes well / Secured Comments: Patient tolerated well. ??Images uploaded electronically. Yovani CANALES US BEDSIDE PROCED URES * Troponin I high sensitivity (05/20/2024 8:29 PM EST) High Sensitivity Troponin I 12 <=79 ng/L LAB CHEMISTRY METHOD 05/20/2024 9:09 PM EST [facility] Blood Venous blood specimen / Unknown Venipuncture / Unknown 05/20/2024 8:29 PM EST 05/20/2024 8:39 PM EST Narrative [facility] - 05/20/2024 9:09 PM EST High levels of biotin in samples may falsely decrease hsTroponin values. ??Use caution when interpreting hsTroponin results in patients taking biotin who exhibit renal impairment (eGFR <60) or in patients taking more than 20 mg/day of biotin. Leo Flores MD LAB BLOOD ORDERABLE S Performing Organization Address City/[facility]/ZIP Co de Phone Number [facility] [address] [place] [address], * Rivera urine culture tube (05/20/2024 8:15 PM EST) Pathologist [facility] Extra Tube Hold for add-ons. 05/20/2024 10:01 PM EST [facility] Comment:Auto resulted. Urine Urine specimen obtained by clean catch procedure / Unknown 05/20/2024 8:15 PM EST 05/20/2024 8:39 PM EST Leo Flroes MD LAB URINE ORDERABLE S Performing Organization Address City/[facility]/ZIP Co de Phone Number [facility] [address] [place] [address], * (ABNORMAL) Urinalysis with reflex microscopic (05/20/2024 8:14 PM EST) Specific [place] Urine 1.034(H) 1.003 - 1.030 LAB URINALYSIS - AUTOMATED METHOD 05/20/2024 9:12 PM [facility] pH, Urine 5.5 5.0 - 8.0 pH LAB URINALYSIS - AUTOMATED METHOD 05/20/2024 9:12 PM [facility] Leukocytes, Urine Negative Negative LAB URINALYSIS - AUTOMATED METHOD 05/20/2024 9:12 PM [facility] Nitrite, Urine Negative Negative LAB URINALYSIS - AUTOMATED METHOD 05/20/2024 9:12 PM [facility] Protein, Urine Negative <=Trace mg/dL LAB URINALYSIS - AUTOMATED METHOD 05/20/2024 9:12 PM [facility] Glucose, Urine >=1000(A) Negative mg/dL LAB URINALYSIS - AUTOMATED METHOD 05/20/2024 9:12 PM [facility] Ketones, Urine 15(A) Negative mg/dL LAB URINALYSIS - AUTOMATED METHOD 05/20/2024 9:12 PM [facility] Urobilinogen , Urine 1.0 0.2 - 1.0 mg/dL LAB URINALYSIS - AUTOMATED METHOD 05/20/2024 9:12 PM [facility] Bilirubin, Urine Negative Negative LAB URINALYSIS - AUTOMATED METHOD 05/20/2024 9:12 PM [facility] Blood, Urine Negative Negative LAB URINALYSIS - AUTOMATED METHOD 05/20/2024 9:12 PM [facility] Urine Urine specimen obtained by clean catch procedure / Unknown Non-blood Collection / Unknown 05/20/2024 8:14 PM EST 05/20/2024 8:38 PM EST Leo Flores MD LAB URINE ORDERABLE S [facility] [address] [place] [address], [place] [phone] * ECG 12 lead (05/20/2024 7:49 PM EST) [facility] Ventricular Rate ECG 81 BPM GEMUSE Atrial Rate 81 BPM GEMUSE P-R Interval 142 ms GEMUSE QRS Duration 90 ms GEMUSE Q-T Interval 386 ms GEMUSE QTc 448 ms GEMUSE P Wave River -5 degrees GEMUSE R River 3 degrees GEMUSE T River 49 degrees GEMUSE ECG Interpretation Normal sinus rhythm Nonspecific T wave abnormality Abnormal ECG No previous ECGs available Confirmed by Kirsten BAILEY JAMES ([id number]) on 05/22/2024 8:39:43 AM GEMUSE 05/20/2024 7:49 PM EST 05/22/2024 8:39 AM EST Yovani CANALES ECG ORDERABLES Performing Organization Address City/[facility] Co de Phone Number GEMUSE * (ABNORMAL) Hemoglobin A1c (05/20/2024 5:44 PM EST) [facility] Hemoglobin A1C 10.7(H) <6.5 % LAB CHEMISTRY METHOD 05/20/2024 10:01 PM EST [facility] Mean Bld Glu Estim. 260 mg/dL LAB CHEMISTRY METHOD 05/20/2024 10:01 PM EST [facility] Blood Venous blood specimen / Unknown Venipuncture / Unknown 05/20/2024 5:44 PM EST 05/20/2024 5:48 PM EST Yovani CANALES LAB BLOOD ORDERAB LES Performing Organization Address [facility]/ZIP Co de Phone Number [facility] [address] [place] [address], [place] [phone] * (ABNORMAL) CBC auto differential (05/20/2024 5:44 PM EST) [facility] WBC 10.7 4.8 - 10.8 K/mcL LAB HEMETOLOGY METHOD 05/20/2024 6:01 PM [facility] RBC 5.20 4.50 - 5.50 M/mcL LAB HEMETOLOGY METHOD 05/20/2024 6:01 PM [facility] Hemoglobin 16.8 13.5 - 17.5 g/dL LAB HEMETOLOGY METHOD 05/20/2024 6:01 PM [facility] Hematocrit 45.8 42.0 - 54.0 % LAB HEMETOLOGY METHOD 05/20/2024 6:01 PM [facility] MCV 88.1 79.0 - 98.0 FL LAB HEMETOLOGY METHOD 05/20/2024 6:01 PM [facility] MCH 32.3(H) 27.0 - 32.0 pcg LAB HEMETOLOGY METHOD 05/20/2024 6:01 PM [facility] MCHC 36.7 32.0 - 37.0 g/dL LAB HEMETOLOGY METHOD 05/20/2024 6:01 PM [facility] RDW 12.7 11.0 - 15.0 % LAB HEMETOLOGY METHOD 05/20/2024 6:01 PM [facility] Platelets 150 130 - 400 K/mcL LAB HEMETOLOGY METHOD 05/20/2024 6:01 PM [facility] MPV 12.3(H) 7.0 - 11.0 FL LAB HEMETOLOGY METHOD 05/20/2024 6:01 PM [facility] NRBC 0.0 <1.0 % LAB HEMETOLOGY METHOD 05/20/2024 6:01 PM [facility] NRBC Absolute 0.00 <0.10 K/mcL LAB HEMETOLOGY METHOD 05/20/2024 6:01 PM [facility] Neutrophils Relative 49.4 % LAB HEMETOLOGY METHOD 05/20/2024 6:01 PM [facility] Lymphocytes Relative 41.7 % LAB HEMETOLOGY METHOD 05/20/2024 6:01 PM [facility] Monocytes Relative 7.9 % LAB HEMETOLOGY METHOD 05/20/2024 6:01 PM [facility] Eosinophils Relative 0.4 % LAB HEMETOLOGY METHOD 05/20/2024 6:01 PM [facility] Basophils Relative 0.4 % LAB HEMETOLOGY METHOD 05/20/2024 6:01 PM [facility] Immature Granulocytes Relative 0.2 % LAB HEMETOLOGY METHOD 05/20/2024 6:01 PM [facility] Neutrophils Absolute 5.30 1.50 - 7.00 K/mcL LAB HEMETOLOGY METHOD 05/20/2024 6:01 PM [facility] Lymphocytes Absolute 4.47 1.00 - 5.00 K/mcL LAB HEMETOLOGY METHOD 05/20/2024 6:01 PM [facility] Monocytes Absolute 0.85 0.20 - 1.00 K/mcL LAB HEMETOLOGY METHOD 05/20/2024 6:01 PM [facility] Eosinophils Absolute 0.04 0.00 - 0.50 K/mcL LAB HEMETOLOGY METHOD 05/20/2024 6:01 PM [facility] Basophils Absolute 0.04 0.00 - 0.20 K/mcL LAB HEMETOLOGY METHOD 05/20/2024 6:01 PM [facility] Immature Granulocytes Absolute 0.02 0.00 - 0.03 K/mcL LAB HEMETOLOGY METHOD 05/20/2024 6:01 PM [facility] Blood Venous blood specimen / Unknown Venipuncture / Unknown 05/20/2024 5:44 PM EST 05/20/2024 5:48 PM EST Leo Flores MD LAB BLOOD ORDERABLE S Performing Organization Address [facility]/ZIP Co de Phone Number [facility] [address] [place] [address], * (ABNORMAL) Venous blood gas (05/20/2024 5:44 PM EST) Pathologist [facility] pH, Carlos 7.32 7.32 - 7.42 pH 05/20/2024 5:54 PM EST [facility] pCO2, Carlos 44 41 - 51 mmHg 05/20/2024 5:54 PM EST [facility] pO2, Carlos 39 25 - 40 mmHg 05/20/2024 5:54 PM EST [facility] HCO3, Venous 20.9(L) 22.0 - 26.0 mmol/L 05/20/2024 5:54 PM EST [facility] O2 Sat, Carlos 68.4 % 05/20/2024 5:54 PM EST [facility] Base Excess, Carlos -3.6(L) -2.0 - 2.0 mmol/L 05/20/2024 5:54 PM EST [facility] Blood Venous blood specimen / Unknown Venipuncture / Unknown 05/20/2024 5:44 PM EST 05/20/2024 5:47 PM EST Leo Flores MD LAB BLOOD ORDERABLE S [facility] [address] [place] [address], * (ABNORMAL) Beta hydroxybutyrate (05/20/2024 5:44 PM EST) [facility] Beta-Hydroxyb utyrate 44.2(H) 0.2 - 2.8 mg/dL LAB CHEMISTRY METHOD 05/20/2024 6:12 PM EST [facility] Blood Venous blood specimen / Unknown Venipuncture / Unknown 05/20/2024 5:44 PM EST 05/20/2024 5:48 PM EST Leo Flores MD LAB BLOOD ORDERABLE S Performing Organization Address [facility] Co de Phone Number [facility] [address] [place] [address], [place] [phone] * (ABNORMAL) Osmolality (05/20/2024 5:44 PM EST) Pathologist [facility] Osmolality Darron 331(H) 280 - 300 mOsm/kg LAB CHEMISTRY METHOD 05/20/2024 6:41 PM EST [facility] Blood Venous blood specimen / Unknown Venipuncture / Unknown 05/20/2024 5:44 PM EST 05/20/2024 5:48 PM EST Leo Flores MD LAB BLOOD ORDERABLE S Performing Organization Address [facility] de Phone Number [facility] [address] [place] [address], [place] [phone] * (ABNORMAL) Magnesium (05/20/2024 5:44 PM EST) [facility] Magnesium 3.0(H) 1.9 - 2.6 mg/dL LAB CHEMISTRY METHOD 05/20/2024 6:12 PM EST [facility] Blood Venous blood specimen / Unknown Venipuncture / Unknown 05/20/2024 5:44 PM EST 05/20/2024 5:48 PM EST Leo Flores MD LAB BLOOD ORDERABLE S Performing Organization Address [facility] de Phone Number [facility] [address] [place] [address], [place] [phone] * Lipase (05/20/2024 5:44 PM EST) [facility] Lipase 35 13 - 75 unit/L LAB CHEMISTRY METHOD 05/20/2024 6:12 PM [facility] Blood Venous blood specimen / Unknown Venipuncture / Unknown 05/20/2024 5:44 PM EST 05/20/2024 5:48 PM EST Leo Flores MD LAB BLOOD ORDERABLE S [facility] [address] [place] [address], * (ABNORMAL) Comprehensive metabolic panel (05/20/2024 5:44 PM EST) Sodium 129(L) 133 - 145 mmol/L LAB CHEMISTRY METHOD 05/20/2024 6:27 PM [facility] Potassium 4.4 3.5 - 5.5 mmol/L LAB CHEMISTRY METHOD 05/20/2024 6:27 PM [facility] Chloride 94(L) 96 - 110 mmol/L LAB CHEMISTRY METHOD 05/20/2024 6:27 PM [facility] CO2 22 21 - 32 mmol/L LAB CHEMISTRY METHOD 05/20/2024 6:27 PM [facility] Anion Gap 13(H) 3 - 11 LAB CHEMISTRY METHOD 05/20/2024 6:27 PM [facility] Glucose 704(HH) 70 - 100 mg/dL LAB CHEMISTRY METHOD 05/20/2024 6:27 PM [facility] BUN 24 5 - 25 mg/dL LAB CHEMISTRY METHOD 05/20/2024 6:27 PM [facility] Creatinine 1.93(H) 0.70 - 1.30 mg/dL LAB CHEMISTRY METHOD 05/20/2024 6:27 PM [facility] eGFR 42(L) >=60 mL/min/1. 73m2 LAB CHEMISTRY METHOD 05/20/2024 6:27 PM [facility] Comment:Calculation based on the??Chronic Kidney Disease Epidemiology Collaboration (CKD-EPI) equation refit??without adjustment for race. BUN/Creatinine Ratio 12.4 LAB CHEMISTRY METHOD 05/20/2024 6:27 PM [facility] Calcium 10.4 8.5 - 10.5 mg/dL LAB CHEMISTRY METHOD 05/20/2024 6:27 PM [facility] AST (SGOT) 22 10 - 42 unit/L LAB CHEMISTRY METHOD 05/20/2024 6:27 PM [facility] ALT (SGPT) 46 10 - 60 unit/L LAB CHEMISTRY METHOD 05/20/2024 6:27 PM [facility] Alkaline Phosphatase 128(H) 42 - 121 unit/L LAB CHEMISTRY METHOD 05/20/2024 6:27 PM [facility] Total Protein 9.2(H) 6.0 - 8.0 g/dL LAB CHEMISTRY METHOD 05/20/2024 6:27 PM [facility] Albumin 4.3 3.2 - 5.0 g/dL LAB CHEMISTRY METHOD 05/20/2024 6:27 PM [facility] Total Bilirubin 1.4 0.0 - 1.4 mg/dL LAB CHEMISTRY METHOD 05/20/2024 6:27 PM [facility] Blood Venous blood specimen / Unknown Venipuncture / Unknown 05/20/2024 5:44 PM EST 05/20/2024 5:48 PM EST Leo Flores MD LAB BLOOD ORDERABLE S [facility] [address] [place] [address], * (ABNORMAL) POCT Glucose, blood (05/20/2024 3:16 PM EST) Glucose POCT >600(HH) 70 - 100 mg/dL 05/20/2024 3:17 PM EST [facility] Blood Capillary blood specimen / Unknown 05/20/2024 3:16 PM EST 05/20/2024 3:18 PM EST Generic Provider Poct LAB POINT OF CARE TEST DOCKED DEVICE UNSOLICITED RESULTS [facility] [address] [place] [address], * ECG-Annotated (05/20/2024) Provider Onbase MD ECG ORDERABLES documented in this encounter Visit Diagnoses Diagnosis DKA (diabetic ketoacidosis) ([facility])- Primary Type II or unspecified type diabetes mellitus with ketoacidosis, not stated as uncontrolled Hyperglycemia Other abnormal glucose Diabetic ketoacidosis without coma associated with type 2 diabetes mellitus ([facility]) documented in this encounter Admitting Diagnoses Diagnosis DKA (diabetic ketoacidosis) ([facility]) Type II or unspecified type diabetes mellitus with ketoacidosis, not stated as uncontrolled documented in this encounter Administered Medications Inactive Administered Medications - up to 3 most recent administrations Medication Order MAR Action Action Date Dose Rate Site fluticasone propionate (FLONASE) 50 mcg/actuation nasal spray 2 spray 2 spray, Each Nostril, Daily, First dose on Mon05/22/24 at 1100, Shake gently. Before first use, prime pump (press 6 times until fine spray appears). After use, clean tip and replace cap. Given 05/23/2024 8:10 AM EST 2 sprays Given 05/22/2024 11:47 AM EST 2 sprays heparin (UFH) injection 5,000 Units 5,000 Units, subcutaneous, Every 8 hours scheduled, First dose on Mon05/20/24 at 2200, Enter Indication for use of heparin (UFH) instead of enoxaparin (LOVENOX): (free text): provider preference, Indication: VTE Prophylaxis, Indications: Prophylaxis of Venous Thromboembolism Given 05/22/2024 6:31 AM EST 5,000 Units Left Lower Abdomen Given 05/21/2024 11:53 PM EST 5,000 Units Left Upper Abdomen Given 05/21/2024 5:15 AM EST 5,000 Units L eft Lower Abdomen insulin glargine (LANTUS) injection 20 Units 20 Units, subcutaneous, Nightly, First dose on Mon05/21/24 at 0114, Notify provider: -If patient is currently or will become NPO -If TPN was or will be interrupted or discontinued -For approval to hold long acting insulin Given 05/21/2024 2:27 AM EST 20 Units Left Upper Arm (Back ) insulin glargine (LANTUS) injection 30 Units 30 Units, subcutaneous, Nightly, First dose (after last modification) on Mon05/21/24 at 2100, Notify provider: -If patient is currently or will become NPO -If TPN was or will be interrupted or discontinued -For approval to hold long acting insulin Given 05/21/2024 11:54 PM EST 30 Units Right Upper Arm (Back) insulin glargine (LANTUS) injection 35 Units 35 Units, subcutaneous, Nightly, First dose (after last modification) on Mon05/22/24 at 2100, Notify provider: -If patient is currently or will become NPO -If TPN was or will be interrupted or discontinued -For approval to hold long acting insulin Given 05/22/2024 8:28 PM EST 35 Units Left Upper Arm (Back ) insulin lispro injection 2-12 Units 2-12 Units, subcutaneous, 3 times daily before meals, First dose on Mon05/21/24 at 0730, Indication: Total Daily Dose (TDD) 40 - 80 units. Correction Scale: Moderate Dose Administer with meal and/or mealtime dose of insulin to correct high blood glucose If mealtime insulin dose not given (e.g. patient NPO or not eating), still administer correction factor for high blood glucose Given 05/21/2024 8:10 AM EST 6 Units Right Upper Arm (Back) insulin lispro injection 2-12 Units 2-12 Units, subcutaneous, 3 times daily, First dose (after last modification) on Mon05/21/24 at 1400, Times confirmed with provider Indication: Total Daily Dose (TDD) 40 - 80 units. Correction Scale: Moderate Dose Administer with meal and/or mealtime dose of insulin to correct high blood glucose If mealtime insulin dose not given (e.g. patient NPO or not eating), still administer correction factor for high blood glucose Given 05/22/2024 8:40 AM EST 8 Units Left Upper Arm (Back ) Given 05/21/2024 8:46 PM EST 8 Units Le ft Upper Arm (Back) Given 05/21/2024 1:36 PM EST 6 Units Le ft Upper Arm (Back) insulin lispro injection 2-12 Units 2-12 Units, subcutaneous, 4 times daily, First dose (after last modification) on Mon05/22/24 at 1200, Times confirmed with provider Indication: Total Daily Dose (TDD) 40 - 80 units. Correction Scale: Moderate Dose Administer with meal and/or mealtime dose of insulin to correct high blood glucose If mealtime insulin dose not given (e.g. patient NPO or not eating), still administer correction factor for high blood glucose Given 05/23/2024 11:35 AM EST 8 Units Left Lower Abdomen Given 05/23/2024 8:10 AM EST 4 Units Ri ght Upper Arm (Back) Given 05/22/2024 8:28 PM EST 6 Units Le ft Upper Arm (Back) insulin lispro injection 5 Units 5 Units, subcutaneous, 3 times daily with meals, First dose on Mon05/21/24 at 0936, Mealtime Insulin - Administer with meal --- -Do NOT give if patient NPO or expected to eat LESS than 50% of meal -If pre-meal glucose LESS than OR equal to 70 mg/dL- treat hypoglycemia and notify provider Given 05/22/2024 8:40 AM EST 5 Units Left Upper Arm (Back ) Given 05/21/2024 4:52 PM EST 5 Units Ri ght Upper Arm (Back) Given 05/21/2024 12:22 PM EST 5 Units R ight Upper Arm (Back) insulin lispro injection 8 Units 8 Units, subcutaneous, 3 times daily with meals, First dose (after last modification) on Mon05/22/24 at 1200, Mealtime Insulin - Administer with meal -Do NOT give if patient NPO or expected to eat LESS than 50% of meal -If pre-meal glucose LESS than OR equal to 70 mg/dL- treat hypoglycemia and notify provider Given 05/23/2024 11:34 AM EST 8 Units Left Lower Abdomen Given 05/23/2024 8:09 AM EST 8 Units Ri ght Upper Arm (Back) Given 05/22/2024 4:21 PM EST 8 Units Ri ght Upper Arm (Back) insulin regular (HumuLIN R) injection 10 Units 10 Units, subcutaneous, Once, On Mon05/20/24 at 1941, For 1 dose Given 05/20/2024 8:25 PM EST 10 Units Left Upper Arm (Back) lactated Ringer's bolus 1,000 mL 1,000 mL, intravenous, at 1,000 mL/hr, Administer over 1 Hours, Once, On Mon05/20/24 at 1941, For 1 dose New Bag 05/20/2024 9:00 PM EST 1,000 mL 1000 mL/hr lactated Ringer's bolus 1,000 mL 1,000 mL, intravenous, at 1,000 mL/hr, Administer over 1 Hours, Once, On Mon05/20/24 at 1957, For 1 dose New Bag 05/20/2024 9:02 PM EST 1,000 mL 1000 mL/hr lactated Ringer's bolus 2,000 mL 2,000 mL, intravenous, at 2,000 mL/hr, Administer over 1 Hours, Once, On Mon05/20/24 at 2018, For 1 dose, For a total of 4 L New Bag 05/20/2024 10:47 PM EST 2,000 mL 2000 mL/hr lactated Ringer's infusion - ADS Override Pull Starting on Mon05/21/24 at 1629, For 1 dose, Created by cabinet override lactated Ringer's infusion 150 mL/hr, intravenous, Continuous, Starting on Mon05/21/24 at 0045, For 20 hours New Bag 05/21/2024 4:53 PM EST 150 mL/hr 150 mL/hr New Bag 05/21/2024 9:18 AM EST 150 mL/hr 150 mL/hr New Bag 05/21/2024 1:19 AM EST 150 mL/hr 150 mL/hr lactated Ringer's infusion 75 mL/hr, intravenous, Continuous, Starting on Mon05/21/24 at 0929, For 20 hours New Bag 05/22/2024 1:42 PM EST 75 mL/hr 75 mL/hr Rate/Dose Change 05/22/2024 11:45 AM EST 75 mL/hr 75 mL/ hr New Bag 05/22/2024 6:31 AM EST 150 mL/hr 150 mL/hr ondansetron (PF) (ZOFRAN) injection 4 mg 4 mg, intravenous, Every 8 hours PRN, vomiting, nausea, Starting on Mon05/20/24 at 2040, -ONLY give IV if patient is unable to take orally. -If inadequate response within 30 minutes, proceed to next-line agent or contact provider if no further options ordered. ondansetron ODT (ZOFRAN-ODT) disintegrating tablet 4 mg 4 mg, oral, Every 8 hours PRN, vomiting, nausea, Starting on Mon05/20/24 at 2040, -Give IV if patient is unable to take orally. -If inadequate response within 30 minutes, proceed to next-line agent or contact provider if no further options ordered. For ODT tablets: -Do not remove from blister pack until just before administering. -Patient should allow tablet to dissolve on tongue. potassium chloride (KLOR-CON M20) CR tablet 40 mEq 40 mEq, oral, Once, On Mon05/20/24 at 1941, For 1 dose, Tablet may be swallowed whole (do not crush/chew/suck on) OR broken in half and each half swallowed separately OR dissolved (whole tablet) in ~4 ounces of water (allow ~2 minutes to dissolve, stir well and administer immediately). Given 05/20/2024 8:25 PM EST 40 mEq prochlorperazine (COMPAZINE) injection 10 mg 10 mg, intravenous, Every 6 hours PRN, nausea, vomiting, Starting on Mon05/20/24 at 2040, 2nd Line Option: -ONLY give IV if patient is unable to take orally. -Give IM if patient does not have IV Access -If inadequate response within 30 minutes, proceed to next-line agent or contact provider if no further options ordered. prochlorperazine (COMPAZINE) suppository 25 mg 25 mg, rectal, Every 12 hours PRN, nausea, vomiting, Starting on Mon05/20/24 at 2040, 2nd Line Option: -ONLY give MN if patient is unable to take orally and cannot receive IV/IM. -If inadequate response within 30 minutes, proceed to next-line agent or contact provider if no further options ordered. prochlorperazine (COMPAZINE) tablet 10 mg 10 mg, oral, Every 6 hours PRN, nausea, vomiting, Starting on Mon05/20/24 at 2040, 2nd Line Option: -Give IV or IM if patient is unable to take orally. -If inadequate response within 30 minutes, proceed to next-line agent or contact provider if no further options ordered. sodium chloride 0.9 % flush 10 mL 10 mL, intravenous, 2 times daily, First dose on Mon05/20/24 at 2100 Given 05/23/2024 8:10 AM EST 10 mL Given 05/22/2024 8:29 PM EST 10 mL Given 05/22/2024 8:41 AM EST 10 mL sodium chloride 0.9 % flush 10 mL 10 mL, intravenous, As needed, line care, Starting on Mon05/20/24 at 2040 documented in this encounter Active and Recently Administered Medications Times are shown in EST. Scheduled Medication Order 05/21/2024 05/22/2024 05/23/2024 fluticasone propionate (FLONASE) 50 mcg/actuation nasal spray 2 spray 2 spray, Each Nostril, Daily, First dose on Mon05/22/24 at 1100, Shake gently. Before first use, prime pump (press 6 times until fine spray appears). After use, clean tip and replace cap. 1147 (Given - Provider: Virginia Irene RN) 0810 (Given - Provider: Virginia Irene RN) heparin (UFH) injection 5,000 Units 5,000 Units, subcutaneous, Every 8 hours scheduled, First dose on Mon05/20/24 at 2200, Enter Indication for use of heparin (UFH) instead of enoxaparin (LOVENOX): (free text): provider preference, Indication: VTE Prophylaxis, Indications: Prophylaxis of Venous Thromboembolism 0515 (Given - Provider: Michelle Aleman, WILLA)1338 (Not Given - Provider: Jazz Gonzales RN - Reason: Patient/Resident/Ag ent refused - education provided )2353 (Given - Provider: Monalisa Sesay RN) 0631 (Given - Provider: Monalisa Sesay RN)1334 (Not Given - Provider: Virginia Irene RN - Reason: Patient/Resident/Ag ent refused - education provided )2200 (Hold - Provider: Angela Bethea RN - Reason: Patient/Resident/Ag ent refused - education provided ) 0524 (Not Given - Provider: Angela Bethea RN - Reason: Patient/Resident/Agent refused - education provided - Comment: pt states he is indept; does not want injection)1400 (Canceled Entry - Provider: Automatic Discharge Provider - Comment: Automatically canceled at discontinue of medication order) insulin glargine (LANTUS) injection 20 Units (CANCELED) 20 Units, subcutaneous, Nightly, First dose on Mon05/21/24 at 0114, Notify provider: -If patient is currently or will become NPO -If TPN was or will be interrupted or discontinued -For approval to hold long acting insulin 226 (Given - Provider: Jerrod Beasley, WILLA) insulin glargine (LANTUS) injection 30 Units (CANCELED) 30 Units, subcutaneous, Nightly, First dose (after last modification) on Mon05/21/24 at 2100, Notify provider: -If patient is currently or will become NPO -If TPN was or will be interrupted or discontinued -For approval to hold long acting insulin 2353 (Given - Provider: Monalisa Sesay RN) insulin glargine (LANTUS) injection 35 Units 35 Units, subcutaneous, Nightly, First dose (after last modification) on Mon05/22/24 at 2100, Notify provider: -If patient is currently or will become NPO -If TPN was or will be interrupted or discontinued -For approval to hold long acting insulin 2027 (Given - Provider: Angela Bethea RN) insulin lispro injection 2-12 Units (CANCELED) 2-12 Units, subcutaneous, 3 times daily before meals, First dose on Mon05/21/24 at 0730, Indication: Total Daily Dose (TDD) 40 - 80 units. Correction Scale: Moderate Dose Administer with meal and/or mealtime dose of insulin to correct high blood glucose If mealtime insulin dose not given (e.g. patient NPO or not eating), still administer correction factor for high blood glucose 0810 (Given - Provider: Jazz Gonzales RN) insulin lispro injection 2-12 Units (CANCELED) 2-12 Units, subcutaneous, 3 times daily, First dose (after last modification) on Mon05/21/24 at 1400, Times confirmed with provider Indication: Total Daily Dose (TDD) 40 - 80 units. Correction Scale: Moderate Dose Administer with meal and/or mealtime dose of insulin to correct high blood glucose If mealtime insulin dose not given (e.g. patient NPO or not eating), still administer correction factor for high blood glucose 1336 (Given - Provider: Jazz Gonzales RN)2046 (Given - Provider: Hair Howe RN) 0840 (Given - Provider: Virginia Irene RN) insulin lispro injection 2-12 Units 2-12 Units, subcutaneous, 4 times daily, First dose (after last modification) on Mon05/22/24 at 1200, Times confirmed with provider Indication: Total Daily Dose (TDD) 40 - 80 units. Correction Scale: Moderate Dose Administer with meal and/or mealtime dose of insulin to correct high blood glucose If mealtime insulin dose not given (e.g. patient NPO or not eating), still administer correction factor for high blood glucose 1146 (Given - Provider: Virginia Irene RN)1620 (Given - Provider: Virginia Irene RN)2028 (Given - Provider: Angela Bethea RN) 0810 (Given - Provider: Virginia Irene, WILLA)1135 (Given - Provider: Virginia Irene RN - Comment: pt being dc) insulin lispro injection 5 Units (CANCELED) 5 Units, subcutaneous, 3 times daily with meals, First dose on Mon05/21/24 at 0936, Mealtime Insulin - Administer with meal -Do NOT give if patient NPO or expected to eat LESS than 50% of meal -If pre-meal glucose LESS than OR equal to 70 mg/dL- treat hypoglycemia and notify provider 1013 (Given - Provider: Jazz Gonzales RN)1222 (Given - Provider: Jazz Gonzales RN)1652 (Given - Provider: Jazz Gonzales RN) 0840 (Given - Provider: Virginia Irene RN) insulin lispro injection 8 Units 8 Units, subcutaneous, 3 times daily with meals, First dose (after last modification) on Mon05/22/24 at 1200, Mealtime Insulin - Administer with meal -Do NOT give if patient NPO or expected to eat LESS than 50% of meal -If pre-meal glucose LESS than OR equal to 70 mg/dL- treat hypoglycemia and notify provider 1146 (Given - Provider: Virginia Irene RN)1621 (Given - Provider: Virginia Irene RN) 0809 (Given - Provider: Virginia Irene RN)1134 (Given - Provider: Virginia Irene RN) melatonin tablet 6 mg 6 mg, oral, Nightly, First dose on Mon05/20/24 at 2100 2356 (Not Given - Provider: Monalisa Sesay RN - Reason: Patient/Resident/Ag ent refused - education provided ) 2028 (Not Given - Provider: Angela Bethea RN - Reason: Patient/Resident/Ag ent refused - education provided ) sodium chloride 0.9 % flush 10 mL(Linked Group 1) 10 mL, intravenous, 2 times daily, First dose on Mon05/20/24 at 2100 0815 (Given - Provider: Jazz Gonzales RN)2034 (Not Given - Provider: Hair Howe RN - Reason: Other) 0841 (Given - Provider: Virginia Irene RN)2028 (Given - Provider: Angela Bethea, WILLA) 0810 (Given - Provider: Virginia Irene RN) Continuous Medication Order 05/21/2024 05/22/2024 05/23/2024 lactated Ringer's infusion () 150 mL/hr, intravenous, Continuous, Starting on Mon05/21/24 at 0045, For 20 hours 0119 (New Bag - Provider: Jerrod Beasley RN)0918 (New Bag - Provider: Jazz Gonzales RN)1653 (New Bag - Provider: Jazz Gonzales RN) 1343 (Stopped - Provider: Virginia Irene RN) lactated Ringer's infusion () 75 mL/hr, intravenous, Continuous, Starting on Mon05/21/24 at 0929, For 20 hours 1014 (Not Given - Provider: Jazz Gonzales RN - Reason: See Provider Order - Comment: DUPLICATE ORDER)2355 (New Bag - Provider: Monalisa Sesay RN) 0631 (New Bag - Provider: Monalisa Sesay RN)1145 (Rate/Dose Change - Provider: Virginia Irene RN)1342 (New Bag - Provider: Virginia Irene RN) PRN Medication Order 05/21/2024 05/22/2024 05/23/2024 acetaminophen (TYLENOL) tablet 650 mg 650 mg, oral, Every 4 hours PRN, mild pain, headaches, fever - temperature GREATER than 38 C (100.4 F), Starting on Mon05/20/24 at 2040 dextrose (D50W) 50% injection 12.5 g 12.5 g, intravenous, Every 15 min PRN, low blood sugar, moderate hypoglycemia *Patient is Unconscious, NPO, unable to swallow: BG 54 - 69 mg/dl*, Starting on Mon05/20/24 at 2019 dextrose (D50W) 50% injection 25 g 25 g, intravenous, Every 15 min PRN, low blood sugar, severe hypoglycemia *Patient is Unconscious, NPO, unable to swallow: BG LESS than 54 mg/dL*, Starting on Mon05/20/24 at 2018 dextrose 15 gram/60 mL oral solution 15 g 15 g, oral, Every 15 min PRN, low blood sugar, hypoglycemia *Patient conscious AND able to drink and swallow safely*, Starting on Mon05/20/24 at 2018 dextrose 15 gram/60 mL oral solution 30 g 30 g, oral, Every 15 min PRN, low blood sugar, hypoglycemia *Patient conscious AND able to drink and swallow safely*, Starting on Mon05/20/24 at 2018 Glucagon HCl (rDNA) injection 1 mg 1 mg, intramuscular, Once as needed, low blood sugar, severe hypoglycemia, Starting on Mon05/20/24 at 2040, For 1 dose ondansetron (PF) (ZOFRAN) injection 4 mg(Linked Group 2) 4 mg, intravenous, Every 8 hours PRN, vomiting, nausea, Starting on Mon05/20/24 at 2040, -ONLY give IV if patient is unable to take orally. -If inadequate response within 30 minutes, proceed to next-line agent or contact provider if no further options ordered. ondansetron ODT (ZOFRAN-ODT) disintegrating tablet 4 mg(Linked Group 2) 4 mg, oral, Every 8 hours PRN, vomiting, nausea, Starting on Mon05/20/24 at 2040, -Give IV if patient is unable to take orally. -If inadequate response within 30 minutes, proceed to next-line agent or contact provider if no further options ordered. For ODT tablets: -Do not remove from blister pack until just before administering. -Patient should allow tablet to dissolve on tongue. prochlorperazine (COMPAZINE) injection 10 mg(Linked Group 3) 10 mg, intravenous, Every 6 hours PRN, nausea, vomiting, Starting on Mon05/20/24 at 2040, 2nd Line Option: -ONLY give IV if patient is unable to take orally. -Give IM if patient does not have IV Access -If inadequate response within 30 minutes, proceed to next-line agent or contact provider if no further options ordered. prochlorperazine (COMPAZINE) suppository 25 mg(Linked Group 3) 25 mg, rectal, Every 12 hours PRN, nausea, vomiting, Starting on Mon05/20/24 at 2040, 2nd Line Option: -ONLY give MN if patient is unable to take orally and cannot receive IV/IM. -If inadequate response within 30 minutes, proceed to next-line agent or contact provider if no further options ordered. prochlorperazine (COMPAZINE) tablet 10 mg(Linked Group 3) 10 mg, oral, Every 6 hours PRN, nausea, vomiting, Starting on Mon05/20/24 at 2040, 2nd Line Option: -Give IV or IM if patient is unable to take orally. -If inadequate response within 30 minutes, proceed to next-line agent or contact provider if no further options ordered. sodium chloride 0.9 % flush 10 mL(Linked Group 1) 10 mL, intravenous, As needed, line care, Starting on Mon05/20/24 at 2040 Linked Groups Order Group 1: Insert peripheral IV (CANCELED) STAT, Once, On Mon05/20/24 at 2041, For 1 occurrence And Maintain IV access (CANCELED) Until discontinued, Starting on Mon05/20/24 at 2041, Until Specified And Saline lock IV (CANCELED) Routine, Once, On Mon05/20/24 at 2041, For 1 occurrence And sodium chloride 0.9 % flush 10 mLJump to med 10 mL, intravenous, 2 times daily, First dose on Mon05/20/24 at 2100 And sodium chloride 0.9 % flush 10 mLJump to med 10 mL, intravenous, As needed, line care, Starting on Mon05/20/24 at 2040 Group 2: ondansetron ODT (ZOFRAN-ODT) disintegrating tablet 4 mgJump to med 4 mg, oral, Every 8 hours PRN, vomiting, nausea, Starting on Mon05/20/24 at 2040, -Give IV if patient is unable to take orally. -If inadequate response within 30 minutes, proceed to next-line agent or contact provider if no further options ordered. For ODT tablets: -Do not remove from blister pack until just before administering. -Patient should allow tablet to dissolve on tongue. Or ondansetron (PF) (ZOFRAN) injection 4 mgJump to med 4 mg, intravenous, Every 8 hours PRN, vomiting, nausea, Starting on Mon05/20/24 at 2040, -ONLY give IV if patient is unable to take orally. -If inadequate response within 30 minutes, proceed to next-line agent or contact provider if no further options ordered. Group 3: prochlorperazine (COMPAZINE) tablet 10 mgJump to med 10 mg, oral, Every 6 hours PRN, nausea, vomiting, Starting on Mon05/20/24 at 2040, 2nd Line Option: -Give IV or IM if patient is unable to take orally. -If inadequate response within 30 minutes, proceed to next-line agent or contact provider if no further options ordered. Or prochlorperazine (COMPAZINE) injection 10 mgJump to med 10 mg, intravenous, Every 6 hours PRN, nausea, vomiting, Starting on Mon05/20/24 at 2040, 2nd Line Option: -ONLY give IV if patient is unable to take orally. -Give IM if patient does not have IV Access -If inadequate response within 30 minutes, proceed to next-line agent or contact provider if no further options ordered. Or prochlorperazine (COMPAZINE) suppository 25 mgJump to med 25 mg, rectal, Every 12 hours PRN, nausea, vomiting, Starting on Mon05/20/24 at 2040, 2nd Line Option: -ONLY give MN if patient is unable to take orally and cannot receive IV/IM. -If inadequate response within 30 minutes, proceed to next-line agent or contact provider if no further options ordered. documented in this encounter Orders Medications Ordered That Stevenson ht Not Have Been Administered Count Last Ordered Date First Ordered Date acetaminophen (TYLENOL) tablet 650 mg 1 dextrose (D50W) 50% injection 12.5 g 1 04/23 dextrose (D50W) 50% injection 25 g 1 2023 dextrose 10 % and sodium chl oride 0.45 % infusion 1 05/20/2024 dextrose 15 gram/60 mL oral solution 15 g 1 05/20/2024 dextrose 15 gram/60 mL oral solution 30 g 1 05/20/2024 enoxaparin (LOVENOX) injection 40 mg 1 04/23 Glucagon HCl (rDNA) injection 1 mg 1 2023 insulin regular in NS 100 un it/100 mL (1 unit/mL) IV 2 05/20/2024 melatonin tablet 6 mg 1 05/20/2024 ondansetron (PF) (ZOFRAN) injection 4 mg 1 05/20/2024 ondansetron ODT (ZOFRAN-ODT) disintegrating tablet 4 mg 1 05/20/2024 potassium chloride 20 mEq in sodium chloride 0.45 % 1,000 mL infusion 1 05/20/2024 prochlorperazine (COMPAZINE) injection 10 mg 1 05/20/2024 prochlorperazine (COMPAZINE) suppository 25 mg 1 05/20/2024 prochlorperazine (COMPAZINE) tablet 10 mg 1 05/20/2024 sodium chloride 0.9 % flush 10 mL 1 024 Lab Orders Without Results Count Last Ordered D ate First Ordered Date POCT GLUCOSE, BLOOD 14 05/23/2024 05/20/20 General Supply Count Last Ordered Date First Or dered Date DIABETES SUPPLIES 1 05/23/2024 Diet Count Last Ordered Date First Orde red Date ADULT DISCHARGE DIET 1 05/23/2024 Nursing Count Last Ordered Date First Orde red Date ACTIVITY 1 05/23/2024 FOLLOW UP PRIMARY PHYSICIAN 1 05/23/2024 Admission Count Last Ordered Date First Orde red Date ADMIT TO INPATIENT 1 05/20/2024 Transfer Count Last Ordered Date First Orde red Date ED TO FLOOR BED REQUEST 1 05/21/2024 TRANSFER PATIENT TO NEW UNIT 1 05/21/2024 Discharge Count Last Ordered Date First Orde red Date DISCHARGE PATIENT 1 05/23/2024 documented in this encounter Additional Health Concerns Infection Onset Date Last Indicated Resolved Time Respiratory Rule-Out 05/20/2024 05/20/2024 024 9:53 PM EST documented as of this encounter Care Teams [employer] Relationship Specialty Start Date End Date Becky Quintana MD [id number] [place] [id number] PCP - General Family Medicine 04/19/24 documented as of this encounter
--- OUTSIDE RECORDS SUMMARY | 2024-06-12 16:13 | XMS_ITS | Clinical Summary ---
Author Organization 175 [facility] Address [address] [place] [address] Phone Care Team Providers Care Wharf Laborer Name Role Phone Becky Quintana MD Primary Care Provider Allergies No known active allergies Medications Medication Sig Dispensed Refills Start Date End Date Status semaglutide (OZEMPIC) 0.25 mg or 0.5 mg(2 mg/1.5 mL) injection pen Inject 0.25 mg under the skin every 7 (seven) days. Active sildenafiL (VIAGRA) 50 mg tablet Take 1 tablet (50 mg total) by mouth 1 (one) time each day if needed for erectile dysfunction. Active fluticasone propionate (FLONASE) 50 mcg/actuation nasal spray Administer 1 spray into each nostril 1 (one) time each day. Shake gently. Before first use, prime pump. After use, clean tip and replace cap. Active melatonin 5 mg tablet Take 1 tablet (5 mg total) by mouth at bedtime. Active insulin glargine (LANTUS) 100 unit/mL injection Inject 35 Units under the skin at bedtime. 20 mL 05/23/2024 07/19/2024 Active blood-glucose meter misc Use to monitor your blood glucose 1 each 05/23/2024 Active glucose blood (Blood Glucose Test) test strip Use to monitor your blood glucose three time(s) daily as directed. 100 each 05/23/2024 05/22/2025 Active lancets lancets Use to monitor your blood glucose three time(s) daily as directed. 100 each 05/23/2024 05/22/2025 Active pen needle, diabetic 32 gauge x 5/32 needle 1 (one) time each day. Use to inject insulin daily 30 each 05/23/2024 06/22/2024 Active Active Problems No known active problems Resolved Problems Problem Noted Date Diagnosed Date Resolved Date DKA (diabetic ketoacidosis) 05/20/2024 05/22/2024 Encounters Date Type Department Care Team Description 05/20/2024 7:35 PM EST - 05/23/2024 12:38 PM EST Hospital Encounter [facility] [address] [place] [address] Leo Flores MD Rasul, Yar M, MD Hyperglycemia (Primary Dx); Diabetic ketoacidosis without coma associated with type 2 diabetes mellitus ([facility]/HCC) Discharge Disposition: Home or Self Care 04/15/2024 Telephone Gastroenterology - Julian 175 [facility] 175 [facility] [address] [place] [address] Nithin Villavicencio MD from Last 3 Months Medical History Medical History Date Comments Known health problems: none Social History Tobacco Use Types Packs/Day Years [...] file Not on file Not on file Obstetrics History Last Filed Vital Signs Vital Sign Reading [...] Mass Index 35.5 05/21/2024 9:05 PM EST Plan of Treatment Upcoming Encounters Date Type Department Care Team (Late st Contact Info) Description 09/04/2024 1:30 PM EDT Appointment [facility] Endoscopy [address] [place] [id number] Nithin Villavicencio MD 175 [facility] [address] [place] [address] Health Maintenance Due Date Last Done Comments Pneumococcal Vaccine: Pediatrics (0 to 5 Years) and At-Risk Patients (6 to 64 Years) (1 of 2 - PCV) 01/28/1982 Diabetes: Annual Foot Exam 01/28/1986 Diabetes: Annual Retina Eye Exam 01/28/1986 Hepatitis A Vaccines (1 of 2 - Risk 2-dose series) 01/28/1995 Hepatitis B Vaccines (1 of 3 - 19+ 3-dose series) 01/28/1995 COVID-19 Vaccine ( - season) 2024 Influenza Vaccine (#1) 2024 Colorectal Cancer Screening: Colonoscopy 04/15/2024 HIV Screening 04/15/2024 Social Influencers of Health Screening 04/15/2024 Diabetes: Annual Urine Albumin-Creatinine Ratio (uACR) 05/20/2024 Diabetes: Blood Sugar Control Test (HGBA1C) 11/18/2024 05/20/2024, 04/12/2024 Depression Screening 04/12/2025 04/12/2024 Diabetes: Annual GFR (Glomerular Filtration Rate) 05/22/2025 05/22/2024, 05/21/2024, 05/21/2024, Additional history exists Cholesterol Screening (Lipid Panel) 04/12/2029 04/12/2024, 04/12/2024, 07/04/2022 DTaP,Tdap,and Td Vaccines (2 - Td or Tdap) 07/04/2032 07/04/2022 Hepatitis C Screening Completed 07/04/2022 HIB Vaccines Aged Out No longer eligi ble based on patient's age to complete this topic HPV Vaccines Aged Out No longer eligi ble based on patient's age to complete this topic IPV Vaccines Aged Out No longer eligi ble based on patient's age to complete this topic MMR Vaccines Aged Out No longer eligi ble based on patient's age to complete this topic Meningococcal ACWY Vaccine Aged Out N o longer eligible based on patient's age to complete this topic RSV Immunization Patients Under 20 months Aged Out No longer eligible based on patient's age to complete this topic Varicella Vaccines Aged Out No longer eligible based on patient's age to complete this topic Procedures Procedure Name Priority Date/Time Associated Diagnosis Comments POCT GLUCOSE BLOOD Routine 05/23/2024 11 :19 AM EST POCT GLUCOSE BLOOD Routine 05/23/2024 7: 48 AM EST POCT GLUCOSE BLOOD Routine 05/22/2024 7: 38 PM EST POCT GLUCOSE BLOOD Routine 05/22/2024 3: 57 PM EST POCT GLUCOSE BLOOD Routine 05/22/2024 11 :03 AM EST BASIC METABOLIC PANEL Routine 05/22/2024 9:42 AM EST LAVENDER - EDTA Routine 05/22/2024 9:40 AM EST EXTRA TUBES Routine 05/22/2024 9:40 AM EST POCT GLUCOSE [...] AUTO DIFFERENTIAL Routine 05/21/2024 9:23 AM EST BASIC METABOLIC PANEL Timed 05/21/2024 9:23 AM EST PHOSPHORUS Routine 05/21/2024 9:23 AM EST MAGNESIUM Routine 05/21/2024 9:23 AM EST CBC AND DIFFERENTIAL Routine 05/21/2024 9:23 AM EST POCT GLUCOSE BLOOD [...] ECG 12-LEAD STAT 05/20/2024 7:49 PM EST HEMOGLOBIN A1C Add-On 05/20/2024 5:44 PM EST CBC WITH AUTO DIFFERENTIAL STAT 05/20/2024 5:44 PM EST VENOUS BLOOD GAS STAT 05/20/2024 5:44 PM EST BETA HYDROXYBUTYRATE STAT 05/20/2024 5:44 PM EST OSMOLALITY STAT 05/20/2024 5:44 PM EST MAGNESIUM STAT 05/20/2024 5:44 PM EST LIPASE STAT 05/20/2024 5:44 PM EST COMPREHENSIVE METABOLIC PANEL STAT 05/20/2024 5:44 PM EST CBC AND DIFFERENTIAL STAT 05/20/2024 5:44 PM EST POCT GLUCOSE BLOOD Routine 05/20/2024 3: 16 PM EST ECG ANNOTATED 05/20/2024 from Last 3 Months Results * (ABNORMAL) POCT Glucose, blood (05/23/2024 11:19 AM EST) Only the most recent of18 resultswithin the time period is included. Glucose POCT 322(H) 70 - 100 mg/dL 05/23/2024 11:20 AM EST [facility] Blood Capillary blood specimen / Unknown 05/23/2024 11:19 AM EST 05/23/2024 11:21 AM EST Eddie Hood MD LAB POINT OF CARE TE ST DOCKED DEVICE UNSOLICITED RESULTS [facility] [address] [place] [address], * (ABNORMAL) Basic metabolic panel (05/22/2024 9:42 AM EST) Only the most recent of4 resultswithin the time period is included. Sodium 133 133 - 145 mmol/L LAB CHEMISTRY METHOD 05/22/2024 10:16 AM [facility] Potassium 3.5 3.5 - 5.5 mmol/L LAB CHEMISTRY METHOD 05/22/2024 10:16 AM [facility] Chloride 100 96 - 110 mmol/L LAB CHEMISTRY METHOD 05/22/2024 10:16 AM [facility] CO2 27 21 - 32 mmol/L LAB CHEMISTRY METHOD 05/22/2024 10:16 AM EST [facility] Anion Gap 6 3 - 11 LAB CHEMISTRY METHOD 05/22/2024 10:16 AM [facility] Glucose 326(H) 70 - 100 mg/dL LAB CHEMISTRY METHOD 05/22/2024 10:16 AM [facility] BUN 7 5 - 25 mg/dL LAB CHEMISTRY METHOD 05/22/2024 10:16 AM [facility] Creatinine 0.89 0.70 - 1.30 mg/dL LAB CHEMISTRY METHOD 05/22/2024 10:16 AM EST [facility] eGFR 106 >=60 mL/min/1. 73m2 LAB CHEMISTRY METHOD 05/22/2024 10:16 AM [facility] Comment:Calculation based on the??Chronic Kidney Disease Epidemiology Collaboration (CKD-EPI) equation refit??without adjustment for race. BUN/Creatinine Ratio 7.9 LAB CHEMISTRY METHOD 05/22/2024 10:16 AM [facility] Calcium 8.8 8.5 - 10.5 mg/dL LAB CHEMISTRY METHOD 05/22/2024 10:16 AM EST [facility] Blood Venous blood specimen / Unknown Venipuncture / Unknown 05/22/2024 9:42 AM EST 05/22/2024 9:49 AM EST Eddie Hood MD LAB BLOOD ORDERABLES Performing Organization Address City/[facility]/ZIP Co de Phone Number [facility] [address] [place] [address], * Lavender tube (05/22/2024 9:40 AM EST) Pathologist [facility] Extra Tube Hold for add-ons. 05/22/2024 11:01 AM EST [facility] Comment:Auto resulted. Blood Venous blood specimen / Unknown Venipuncture / Unknown 05/22/2024 9:40 AM EST 05/22/2024 9:50 AM EST Eddie Hood MD LAB BLOOD ORDERABLES Performing Organization Address City/[facility]/ZIP Co de Phone Number [facility] [address] [place] [address], * (ABNORMAL) CBC auto differential (05/21/2024 9:23 AM EST) Only the most recent of2 resultswithin the time period is included. WBC 9.5 4.8 - 10.8 K/mcL LAB HEMETOLOGY METHOD 05/21/2024 9:51 AM EST [facility] RBC 4.70 4.50 - 5.50 M/[facility] LAB HEMETOLOGY METHOD 05/21/2024 9:51 AM EST [facility] Hemoglobin 15.1 13.5 - 17.5 g/dL LAB HEMETOLOGY METHOD 05/21/2024 9:51 AM [facility] Hematocrit 41.3(L) 42.0 - 54.0 % LAB HEMETOLOGY METHOD 05/21/2024 9:51 AM [facility] MCV 88.1 79.0 - 98.0 FL LAB HEMETOLOGY METHOD 05/21/2024 9:51 AM [facility] MCH 32.2(H) 27.0 - 32.0 pcg LAB HEMETOLOGY METHOD 05/21/2024 9:51 AM [facility] MCHC 36.6 32.0 - 37.0 g/dL LAB HEMETOLOGY METHOD 05/21/2024 9:51 AM [facility] RDW 12.7 11.0 - 15.0 % LAB HEMETOLOGY METHOD 05/21/2024 9:51 AM [facility] Platelets 136 130 - 400 K/mcL LAB HEMETOLOGY METHOD 05/21/2024 9:51 AM [facility] MPV 12.4(H) 7.0 - 11.0 FL LAB HEMETOLOGY METHOD 05/21/2024 9:51 AM [facility] NRBC 0.0 <1.0 % LAB HEMETOLOGY METHOD 05/21/2024 9:51 AM [facility] NRBC Absolute 0.00 <0.10 K/mcL LAB HEMETOLOGY METHOD 05/21/2024 9:51 AM [facility] Neutrophils Relative 51.1 % LAB HEMETOLOGY METHOD 05/21/2024 9:51 AM [facility] Lymphocytes Relative 42.3 % LAB HEMETOLOGY METHOD 05/21/2024 9:51 AM [facility] Monocytes Relative 5.1 % LAB HEMETOLOGY METHOD 05/21/2024 9:51 AM [facility] Eosinophils Relative 0.7 % LAB HEMETOLOGY METHOD 05/21/2024 9:51 AM [facility] Basophils Relative 0.6 % LAB HEMETOLOGY METHOD 05/21/2024 9:51 AM EST [facility] Immature Granulocytes Relative 0.2 % LAB HEMETOLOGY METHOD 05/21/2024 9:51 AM EST [facility] Neutrophils Absolute 4.86 1.50 - 7.00 K/mcL LAB HEMETOLOGY METHOD 05/21/2024 9:51 AM EST [facility] Lymphocytes Absolute 4.03 1.00 - 5.00 K/mcL LAB HEMETOLOGY METHOD 05/21/2024 9:51 AM EST [facility] Monocytes Absolute 0.49 0.20 - 1.00 K/mcL LAB HEMETOLOGY METHOD 05/21/2024 9:51 AM EST [facility] Eosinophils Absolute 0.07 0.00 - 0.50 K/[facility] LAB HEMETOLOGY METHOD 05/21/2024 9:51 AM EST [facility] Basophils Absolute 0.06 0.00 - 0.20 K/mcL LAB HEMETOLOGY METHOD 05/21/2024 9:51 AM EST [facility] Immature Granulocytes Absolute 0.02 0.00 - 0.03 K/mcL LAB HEMETOLOGY METHOD 05/21/2024 9:51 AM [facility] Blood Venous blood specimen / Unknown Venipuncture / Unknown 05/21/2024 9:23 AM EST 05/21/2024 9:34 AM EST Leo Flores MD LAB BLOOD ORDERABLE S [facility] [address] [place] [address], * Phosphorus (05/21/2024 9:23 AM EST) Phosphorus 3.0 2.5 - 4.5 mg/dL LAB CHEMISTRY METHOD 05/21/2024 10:08 AM EST [facility] Blood Venous blood specimen / Unknown Venipuncture / Unknown 05/21/2024 9:23 AM EST 05/21/2024 9:33 AM EST Leo Flores MD LAB BLOOD ORDERABLE S Performing Organization Address [facility] Co de Phone Number [facility] [address] [place] [address], [place] [phone] * Magnesium (05/21/2024 9:23 AM EST) Only the most recent of2 resultswithin the time period is included. [facility] Magnesium 1.9 1.9 - 2.6 mg/dL LAB CHEMISTRY METHOD 05/21/2024 10:08 AM EST [facility] Blood Venous blood specimen / Unknown Venipuncture / Unknown 05/21/2024 9:23 AM EST 05/21/2024 9:33 AM EST Leo Flores MD LAB BLOOD ORDERABLE S Performing Organization Address [facility] de Phone Number [facility] [address] [place] [address], [place] [phone] * Troponin I high sensitivity (05/20/2024 9:25 PM EST) Only the most recent of2 resultswithin the time period is included. [facility] High Sensitivity Troponin I 14 <=79 ng/L LAB CHEMISTRY METHOD 05/20/2024 10:05 PM EST [facility] Blood Venous blood specimen / Unknown Venipuncture / Unknown 05/20/2024 9:25 PM EST 05/20/2024 9:40 PM EST Narrative [facility] - 05/20/2024 10:05 PM EST High levels of biotin in samples may falsely decrease hsTroponin values. ??Use caution when interpreting hsTroponin results in patients taking biotin who exhibit renal impairment (eGFR <60) or in patients taking more than 20 mg/day of biotin. Leo Flores MD LAB BLOOD ORDERABLE S [facility] [address] [place] [address], [place] [phone] * XR Chest 1 View (05/20/2024 9:23 PM EST) Anatomical Region Laterality Modality Body Radiographic Raine ging 05/21/2024 8:47 AM EST Impressions 05/21/2024 8:48 AM EST Impression: No active pulmonary process identified. Telerad ALLY ([id number]) -------- FINAL REPORT -------- Dictated By: Gabriela Blankenship Dictated Date: 05/21/2024 08:47 ET Assigned Physician: Gabriela Blankenship Reviewed and Electronically Signed By: Gabriela Blankenship Signed Date: 05/21/2024 08:48 ET Workstation ID: [id number] Transcribed By: Self Edit Transcribed Date: 05/21/2024 [...] IMPRESSION: Impression: No active pulmonary process identified. Telerad ALLY ([id number]) -------- FINAL REPORT -------- Dictated By: Gabriela Blankenship Dictated Date: 05/21/2024 08:47 ET Assigned Physician: Gabriela Blankenship Reviewed and Electronically Signed By: Gabriela Blankenship Signed Date: 05/21/2024 08:48 ET Workstation ID: [id number] Transcribed By: Self Edit Transcribed Date: 05/21/2024 08:47 ET Nitesh CANALES IMG XR PROCEDURES * Respiratory virus panel molecular study (05/20/2024 8:50 PM EST) Adenovirus Detection by PCR Not Detected Not Detected LAB MICROBIOLOGY METHOD 05/20/2024 9:53 PM EST [facility] Influenza A PCR Not Detected Not Detected LAB MICROBIOLOGY METHOD 05/20/2024 9:53 PM [facility] Influenza B PCR Not Detected Not Detected LAB MICROBIOLOGY METHOD 05/20/2024 9:53 PM [facility] Coronavirus 229E Not Detected Not Detected LAB MICROBIOLOGY METHOD 05/20/2024 9:53 PM EST [facility] Coronavirus HKU1 Not Detected Not Detected LAB MICROBIOLOGY METHOD 05/20/2024 9:53 PM [facility] Coronavirus OC43 Not Detected Not Detected LAB MICROBIOLOGY METHOD 05/20/2024 9:53 PM [facility] Coronavirus NL63 Not Detected Not Detected LAB MICROBIOLOGY METHOD 05/20/2024 9:53 PM EST [facility] Parainfluenza Virus 1 Not Detected Not Detected LAB MICROBIOLOGY METHOD 05/20/2024 9:53 PM [facility] Parainfluenza Virus 2 Not Detected Not Detected LAB MICROBIOLOGY METHOD 05/20/2024 9:53 PM [facility] Parainfluenza Virus 3 Not Detected Not Detected LAB MICROBIOLOGY METHOD 05/20/2024 9:53 PM [facility] Parainfluenza Virus 4 Not Detected Not Detected LAB MICROBIOLOGY METHOD 05/20/2024 9:53 PM [facility] RSV PCR Not Detected Not Detected LAB MICROBIOLOGY METHOD 05/20/2024 9:53 PM EST [facility] Human Metapneumovirus A and B Not Detected Not Detected LAB MICROBIOLOGY METHOD 05/20/2024 9:53 PM EST [facility] Rhinovirus/Entero virus Not Detected Not Detected LAB MICROBIOLOGY METHOD 05/20/2024 9:53 PM EST [facility] Bordetella pertussis Not Detected Not Detected LAB MICROBIOLOGY METHOD 05/20/2024 9:53 PM EST [facility] Bordetella parapertussis Not Detected Not Detected LAB MICROBIOLOGY METHOD 05/20/2024 9:53 PM [facility] Mycoplasma pneumo by PCR Not Detected Not Detected LAB MICROBIOLOGY METHOD 05/20/2024 9:53 PM [facility] Chlamydia pneumoniae Not Detected Not Detected LAB MICROBIOLOGY METHOD 05/20/2024 9:53 PM [facility] SARS COV-2 Not Detected Not Detected LAB MICROBIOLOGY METHOD 05/20/2024 9:53 PM [facility] Swab Both anterior nares / Unknown Non-blood Collection / Unknown 05/20/2024 8:50 PM EST 05/20/2024 9:00 PM EST [facility] - 05/20/2024 9:53 PM EST Testing was performed using the [employer] Respiratory Pathogen PCR Assay. All results must [...] Flores MD LAB MICROBIOLOGY - GENERAL ORDERABLES [facility] [address] [place] [address], * US BEDSIDE VASCULAR ACCESS (05/20/2024 8:47 [...] Yovani CANALES US BEDSIDE PROCED URES * Rivera urine culture tube (05/20/2024 8:15 PM EST) Pathologist [facility] Extra Tube Hold for add-ons. 05/20/2024 10:01 PM EST [facility] Comment:Auto resulted. Urine Urine specimen obtained by clean catch procedure / Unknown 05/20/2024 8:15 PM EST 05/20/2024 8:39 PM EST Leo Flores MD LAB URINE ORDERABLE S [facility] [address] [place] [address], [place] [phone] * (ABNORMAL) Urinalysis with reflex microscopic (05/20/2024 8:14 PM EST) Pathologist [facility] Specific [place] Urine 1.034(H) 1.003 - 1.030 LAB URINALYSIS - AUTOMATED METHOD 05/20/2024 9:12 PM EST [facility] pH, Urine 5.5 5.0 - 8.0 pH LAB URINALYSIS - AUTOMATED METHOD 05/20/2024 9:12 PM [facility] Leukocytes, Urine Negative Negative LAB URINALYSIS - AUTOMATED METHOD 05/20/2024 9:12 PM [facility] Nitrite, Urine Negative Negative LAB URINALYSIS - AUTOMATED METHOD 05/20/2024 9:12 PM [facility] Protein, Urine Negative <=Trace mg/dL LAB URINALYSIS - AUTOMATED METHOD 05/20/2024 9:12 PM [facility] Glucose, Urine >=1000(A) Negative mg/dL LAB URINALYSIS - AUTOMATED METHOD 05/20/2024 9:12 PM [facility] Ketones, Urine 15(A) Negative mg/dL LAB URINALYSIS - AUTOMATED METHOD 05/20/2024 9:12 PM [facility] Urobilinogen , Urine 1.0 0.2 - 1.0 mg/dL LAB URINALYSIS - AUTOMATED METHOD 05/20/2024 9:12 PM [facility] Bilirubin, Urine Negative Negative LAB URINALYSIS - AUTOMATED METHOD 05/20/2024 9:12 PM [facility] Blood, Urine Negative Negative LAB URINALYSIS - AUTOMATED METHOD 05/20/2024 9:12 PM [facility] Urine Urine specimen obtained by clean catch procedure / Unknown Non-blood Collection / Unknown 05/20/2024 8:14 PM EST 05/20/2024 8:38 PM EST Leo Flores MD LAB URINE ORDERABLE S [facility] [address] [place] [address], * ECG 12 lead (05/20/2024 7:49 PM EST) Ventricular Rate ECG 81 BPM GEMUSE Atrial Rate 81 BPM GEMUSE P-R Interval 142 ms GEMUSE QRS Duration 90 ms GEMUSE Q-T Interval 386 ms GEMUSE QTc 448 ms GEMUSE P Wave Dillon -5 degrees GEMUSE R Dillon 3 degrees GEMUSE T Dillon 49 degrees GEMUSE ECG Interpretation Normal sinus rhythm Nonspecific T wave abnormality Abnormal ECG No previous ECGs available Confirmed by Kirsten BAILEY JAMES ([id number]) on 05/22/2024 8:39:43 AM GEMUSE 05/20/2024 7:49 PM EST 05/22/2024 8:39 AM EST Yovani CANALES ECG ORDERABLES Performing Organization Address City/[facility]/ZIP Co de Phone Number GEMUSE * (ABNORMAL) Beta hydroxybutyrate (05/20/2024 5:44 PM EST) [facility] Beta-Hydroxyb utyrate 44.2(H) 0.2 - 2.8 mg/dL LAB CHEMISTRY METHOD 05/20/2024 6:12 PM EST [facility] Blood Venous blood specimen / Unknown Venipuncture / Unknown 05/20/2024 5:44 PM EST 05/20/2024 5:48 PM EST Leo Flores MD LAB BLOOD ORDERABLE S Performing Organization Address [facility] de Phone Number [facility] [address] [place] [address], [place] [phone] * (ABNORMAL) Osmolality (05/20/2024 5:44 PM EST) [facility] Osmolality Darron 331(H) 280 - 300 mOsm/kg LAB CHEMISTRY METHOD 05/20/2024 6:41 PM EST [facility] Blood Venous blood specimen / Unknown Venipuncture / Unknown 05/20/2024 5:44 PM EST 05/20/2024 5:48 PM EST Leo Flores MD LAB BLOOD ORDERABLE S Performing Organization Address [facility] Co de Phone Number [facility] [address] [place] [address], [place] [phone] * Lipase (05/20/2024 5:44 PM EST) Lipase 35 13 - 75 unit/L LAB CHEMISTRY METHOD 05/20/2024 6:12 PM EST [facility] Blood Venous blood specimen / Unknown Venipuncture / Unknown 05/20/2024 5:44 PM EST 05/20/2024 5:48 PM EST Leo Flores MD LAB BLOOD ORDERABLE S Performing Organization Address [facility]/ZIP Co de Phone Number [facility] [address] [place] [address], * (ABNORMAL) Hemoglobin A1c (05/20/2024 5:44 PM EST) [facility] Hemoglobin A1C 10.7(H) <6.5 % LAB CHEMISTRY METHOD 05/20/2024 10:01 PM EST [facility] Mean Bld Glu Estim. 260 mg/dL LAB CHEMISTRY METHOD 05/20/2024 10:01 PM EST [facility] Blood Venous blood specimen / Unknown Venipuncture / Unknown 05/20/2024 5:44 PM EST 05/20/2024 5:48 PM EST Yovani CANALES LAB BLOOD ORDERAB LES [facility] [address] [place] [address], [place] [phone] * (ABNORMAL) Venous blood gas (05/20/2024 5:44 PM EST) pH, Carlos 7.32 7.32 - 7.42 pH 05/20/2024 5:54 PM EST [facility] pCO2, Carlos 44 41 - 51 mmHg 05/20/2024 5:54 PM EST [facility] pO2, Carlos 39 25 - 40 mmHg 05/20/2024 5:54 PM [facility] HCO3, Venous 20.9(L) 22.0 - 26.0 mmol/L 05/20/2024 5:54 PM [facility] O2 Sat, Carlos 68.4 % 05/20/2024 5:54 PM [facility] Base Excess, Carlos -3.6(L) -2.0 - 2.0 mmol/L 05/20/2024 5:54 PM [facility] Blood Venous blood specimen / Unknown Venipuncture / Unknown 05/20/2024 5:44 PM EST 05/20/2024 5:47 PM EST Leo Flores MD LAB BLOOD ORDERABLE S [facility] [address] [place] [address], * (ABNORMAL) Comprehensive metabolic panel (05/20/2024 5:44 PM EST) Sodium 129(L) 133 - 145 mmol/L LAB CHEMISTRY METHOD 05/20/2024 6:27 PM [facility] Potassium 4.4 3.5 - 5.5 mmol/L LAB CHEMISTRY METHOD 05/20/2024 6:27 PM [facility] Chloride 94(L) 96 - 110 mmol/L LAB CHEMISTRY METHOD 05/20/2024 6:27 PM [facility] CO2 22 21 - 32 mmol/L LAB CHEMISTRY METHOD 05/20/2024 6:27 PM [facility] Anion Gap 13(H) 3 - 11 LAB CHEMISTRY METHOD 05/20/2024 6:27 PM [facility] Glucose 704(HH) 70 - 100 mg/dL LAB CHEMISTRY METHOD 05/20/2024 6:27 PM [facility] BUN 24 5 - 25 mg/dL LAB CHEMISTRY METHOD 05/20/2024 6:27 PM [facility] Creatinine 1.93(H) 0.70 - 1.30 mg/dL LAB CHEMISTRY METHOD 05/20/2024 6:27 PM [facility] eGFR 42(L) >=60 mL/min/1. 73m2 LAB CHEMISTRY METHOD 05/20/2024 6:27 PM [facility] Comment:Calculation based on the??Chronic Kidney Disease Epidemiology Collaboration (CKD-EPI) equation refit??without adjustment for race. BUN/Creatinine Ratio 12.4 LAB CHEMISTRY METHOD 05/20/2024 6:27 PM [facility] Calcium 10.4 8.5 - 10.5 mg/dL LAB CHEMISTRY METHOD 05/20/2024 6:27 PM [facility] AST (SGOT) 22 10 - 42 unit/L LAB CHEMISTRY METHOD 05/20/2024 6:27 PM [facility] ALT (SGPT) 46 10 - 60 unit/L LAB CHEMISTRY METHOD 05/20/2024 6:27 PM [facility] Alkaline Phosphatase 128(H) 42 - 121 unit/L LAB CHEMISTRY METHOD 05/20/2024 6:27 PM [facility] Total Protein 9.2(H) 6.0 - 8.0 g/dL LAB CHEMISTRY METHOD 05/20/2024 6:27 PM [facility] Albumin 4.3 3.2 - 5.0 g/dL LAB CHEMISTRY METHOD 05/20/2024 6:27 PM [facility] Total Bilirubin 1.4 0.0 - 1.4 mg/dL LAB CHEMISTRY METHOD 05/20/2024 6:27 PM [facility] Blood Venous blood specimen / Unknown Venipuncture / Unknown 05/20/2024 5:44 PM EST 05/20/2024 5:48 PM EST Leo Flores MD LAB BLOOD ORDERABLE [facility] [address] [place] [address], * ECG-Annotated (05/20/2024) Provider Onbase ECG ORDERABLES from Last 3 Months Advance Directives * Full Code - Default (Latest Code Status on File) Date Activated Date Inactivated Comments 05/20/2024 8:41 PM 05/23/2024 2:44 PM This is orde r is used when code status has not been discussed with the patient, or code status is otherwise unknown/unconfirmed To update the patient's code status, place a code status order. Do not modify or discontinue any currently active code status orders. Care Teams Wharf Laborer Relationship Specialty Start Date End Date Becky Quintana MD [address] [place] [address] PCP - General Family Medicine 04/19/24
--- OUTSIDE RECORDS SUMMARY | 2024-06-12 16:13 | XMS_ITS | Clinical Summary ---
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 Take as directed or until you run out 20 tablet 05/06/2021 Active Social History Tobacco Use Types Packs/Day Years Used Date Smoking Tobacco: Never Assessed Sex and Gender Information Value Date Recorded Sex Assigned at Not on file Gender Identity Not on file Sexual Orientation Not on file Last Filed Vital Signs Vital Sign Reading Time Taken Comments Blood Pressure 156/87 05/06/2021 8:09 PM EST Pulse 94 05/06/2021 8:09 PM EST Temperature 36.4 ??C (97.6 ??F) 05/06/2021 8:09 PM ES T Respiratory Rate 18 05/06/2021 8:09 PM EST Oxygen Saturation 97% 05/06/2021 8:09 PM EST Inhaled Oxygen Concentration - - Weight - - Height - - Body Mass Index - - Plan of Treatment Health Maintenance Due Date Last Done Comments Hepatitis C Virus Screening 1975 HIV Screening 01/28/1989 DTaP/Tdap/Td Vaccines (1 - Tdap) 01/28/1995 Hepatitis B Vaccines (1 of 3 - 19+ 3-dose series) 01/28/1995 Colonoscopy 01/28/2021 Influenza Vaccine 12/21/2023 COVID-19 Vaccine ( - 2023-2 5 season) 2024 Pneumococcal Vaccine: Pediat adonay (0-5 Years) and At-Risk Patients (6 to 49 Years) Aged Out No longer eligible b ased on patient's age to complete this topic Care Teams Mud Mixer Relationship Specialty Start Date End Date Pcp, No PCP - General General Medicine 05/06/21
== END 2024-06-12 16:01 | disposition home or self-care (01) ==
PROVIDERS: PCP Student in an Organized Health Care Education/Training Program; Visit Provider Nurse Practitioner Family
DX: E11.69 Type 2 diabetes mellitus with other specified complication (principal); N52.1 Erectile dysfunction due to diseases classified elsewhere; Z13.9 Encounter for screening, unspecified
CPT/HCPCS: 99203

== ENCOUNTER → 2024-06-12 13:56 | Outpatient (BNVA) | payer MEDICAID, SELFPAY | PROVIDERS: PCP Student in an Organized Health Care Education/Training Program; Visit Provider Nurse Practitioner Family | DX: E11.69 Type 2 diabetes mellitus with other specified complication (principal); N52.1 Erectile dysfunction due to diseases classified elsewhere | CPT/HCPCS: 81003; 99212 ==